=== PATIENT | female | born 1995 | race Caucasian/White ===

== ENCOUNTER → 2017-08-14 13:36 | Outpatient (REF) | payer OTHER, SELFPAY | LOC: LAB 13:36 ==

== ENCOUNTER → 2017-08-15 16:35 | Outpatient (REF) | payer OTHER, SELFPAY | LOC: LAB 16:35 ==

== ENCOUNTER 2017-08-24 16:28 | Emergency (ER) | payer OTHER, SELFPAY ==
[2017-08-24 17:16] VITALS: BP 142/86; PULSE 122; RESP 20; TEMP 36.8; O2SAT 99; BMI 28.3
[2017-08-24 17:53] LABS: UTC Influenza A Antigen Negative (Negative); UTC Influenza B Antigen Negative (Negative)
--- NOTE | 2017-08-24 18:24 | HMH.EDUTC ---
[facility] [place] Impression: Dehydration Diarrhea Qualifiers: Diarrhea type: presumed infectious Qualified Code(s): R19.7 - Diarrhea, unspecified Disposition: Still a Patient Condition on Discharge: Good Time of Disposition: 18:32 (Transfer to ER) Medical Decision Making Vital Signs: 08/24/17 17:16 Temperature 98.3 F Temperature Source Temporal Artery Scan Pulse Rate [Right Brachial] 122 H Respiratory Rate 20 Blood Pressure [Right Arm] 142/86 Blood Pressure Mean [Right Arm] 104 Blood Pressure Source [Right Arm] Automatic Cuff Blood Pressure Position [Right Arm] Sitting 02 Sat by Pulse Oximetry 99 Oxygen Delivery Method Room Air - Lab Data Lab results reviewed: Yes: I reviewed the patient's lab results. Lab Results 08/24/17 17:19: Influenza Type A Ag Negative, Influenza Type B Ag Negative - Anselmo Inquiry Pt receiving controlled substance: No - Reevaluation(s) Time: 18:31 Reevaluation #1: Discussed symptoms, possible differentials, [facility] guidelines, and necessary workup with patient. Agreeable to transfer to ER. Report called to AZUL Salgado in ER. Room 10 available. [facility] [place] - General Stated complaint: olivia,body pain Time Seen by Provider: 08/24/17 18:24 Mode of Arrival: Family Vehicle Source of Information: Patient Limitations: No Limitations Description of Symptoms (Recalled from Triage Doc. by RN): BODY ACHES, NAUSEA,SORE THROAT, DIZZINESS, DIARRHEA, FEVER, CHILLS, HEADACHE, WEAKNESS. HEENT Symptoms (Recalled from RN notes): Yes Resp Symptoms (Recalled from RN notes): No Skin Symptoms (Recalled from RN notes): No MS Symptoms (Recalled from RN notes): No Functional Status (Recalled from RN notes): NO - History of Present Illness Provider Complaint: c/o diarrhea starting Monday morning. now today significant headaches, dizziness, flushing, diaphoresis. No known sickc ontacts at home. 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 Reports at least 15 times already today and each time is a lot . Watery. Foul odor. No blood. Denies diarrhea. Immediate diarrhea after eating or drinking anything at all . Abdominal cramping before and after diarrhea. Initially lower but now upper abdomen. No known fever but feeling feverish now. Decreased urination today. Only twice. - Related Data Allergies Allergy/AdvReac Type Severity Reaction Status Date / Time No Known Allergies Allergy Unverified 07/25/17 14:58 - Worker's Comp Is this a Worker's Comp case?: No [facility] History I have reviewed the patient's past medical history: Yes (denies PMHx) Laterality Cases: Bilateral: Tonsillectomy - *Social History Smoking Status: Never smoker Alcohol Intake: never Substance Use Type: denies use - Psychiatric History Expresses thoughts of harming self/others: None Suicide Plan Description: No Plan *Family Hx:: Diabetes ROS Obtained: Yes Systems reviewed as appropriate & no additional complaints - Constitutional Constitutional: Reports as per HPI - ENT Ears, Nose, Mouth, and Throat: Denies nasal discharge, Denies nasal obstruction, Denies sore throat - Cardiovascular Cardiovascular: Denies chest pain, Reports irregular heart rhythm ( faster then normal today ), Denies leg edema - Respiratory Respiratory: No dyspnea, No dyspnea on exertion - Gastrointestinal Gastrointestingal: Reports: as per HPI - Genitourinary Female Genitourinary: Denies dysuria, Denies urinary urgency - Musculoskeletal Musculoskeletal: Denies back pain - Integumentary/Breasts Skin/Breast: Denies rash - Neurologic Neurologic: Reports headache(s) (worsening today), Denies tingling/numbness/burning sensations Physical Exam - General General appearance: alert, in no apparent distress - Eye Eye exam: Present: normal appearance - ENT ENT exam: Present: normal oropharynx, mucous membranes dry, TM's normal bilaterally - Neck Neck exam: Absent: lymphadenopathy - Chest Chest inspection: Present
--- NOTE | 2017-08-24 18:31 | ED_ITS ---
[facility] [place] Clinical Impression: Dehydration Diarrhea Qualifiers: Diarrhea type: presumed infectious Qualified Code(s): R19.7 - Diarrhea, unspecified Disposition: Still a Patient Condition on Discharge: Good Time of Disposition: 18:32 (Transfer to ER) Medical Decision Making Vital Signs: 08/24/17 17:16 Temperature 98.3 F Temperature Source Temporal Artery Scan Pulse Rate [Right Brachial] 122 H Respiratory Rate 20 Blood Pressure [Right Arm] 142/86 Blood Pressure Mean [Right Arm] 104 Blood Pressure Source [Right Arm] Automatic Cuff Blood Pressure Position [Right Arm] Sitting 02 Sat by Pulse Oximetry 99 Oxygen Delivery Method Room Air - Lab Data Lab results reviewed: Yes: I reviewed the patient's lab results. Lab Results 08/24/17 17:19: Influenza Type A Ag Negative, Influenza Type B Ag Negative - Anselmo Inquiry Pt receiving controlled substance: No - Reevaluation(s) Time: 18:31 Reevaluation #1: Discussed symptoms, possible differentials, [facility] guidelines, and necessary workup with patient. Agreeable to transfer to ER. Report called to AZUL Salgado in ER. Room 10 available. [facility] [place] HPI - General Stated complaint: olivia,body pain Time Seen by Provider: 08/24/17 18:24 Mode of Arrival: Family Vehicle Source of Information: Patient Limitations: No Limitations Description of Symptoms (Recalled from Triage Doc. by RN): BODY ACHES, NAUSEA, SORE THROAT, DIZZINESS, DIARRHEA, FEVER, CHILLS, HEADACHE, WEAKNESS. HEENT Symptoms (Recalled from RN notes): Yes Resp Symptoms (Recalled from RN notes): No Skin Symptoms (Recalled from RN notes): No MS Symptoms (Recalled from RN notes): No Functional Status (Recalled from RN notes): NO - History of Present Illness Provider Complaint: c/o diarrhea starting Monday morning. now today significant headaches, dizziness, flushing, diaphoresis. No known sickc ontacts at home. 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 Reports at least 15 times already today and each time is a lot . Watery. Foul odor. No blood. Denies diarrhea. Immediate diarrhea after eating or drinking anything at all . Abdominal cramping before and after diarrhea. Initially lower but now upper abdomen. No known fever but feeling feverish now. Decreased urination today. Only twice. - Related Data Allergies Allergy/AdvReac Type Severity Reaction Status Date / Time No Known Allergies Allergy Unverified 07/25/17 14:58 - Worker's Comp Is this a Worker's Comp case?: No [facility] History I have reviewed the patient's past medical history: Yes (denies PMHx) Laterality Cases: Bilateral: Tonsillectomy - *Social History Smoking Status: Never smoker Alcohol Intake: never Substance Use Type: denies use - Psychiatric History Expresses thoughts of harming self/others: None Suicide Plan Description: No Plan *Family Hx:: Diabetes ROS Obtained: Yes Systems reviewed as appropriate & no additional complaints - Constitutional Constitutional: Reports as per HPI - ENT Ears, Nose, Mouth, and Throat: Denies nasal discharge, Denies nasal obstruction , Denies sore throat - Cardiovascular Cardiovascular: Denies chest pain, Reports irregular heart rhythm ( faster then normal today ), Denies leg edema - Respiratory Respiratory: No dyspnea, No dyspnea on exertion - Gastrointestinal Gastrointestingal: Reports: as per HPI
[2017-08-24 18:49] VITALS: BP 132/83; PULSE 125; RESP 20; TEMP 37.3; O2SAT 98; BMI 28.3
[2017-08-24 19:13] LABS: Adenovirus F 40/41, stool Not Detected (NotDetected); Campylobacter Not Detected (NotDetected); Clostridium Difficile A/B, PCR Not Detected (NotDetected); Cryptosporidium Not Detected (NotDetected); Cyclospora Cayetanesis Not Detected (NotDetected); Entamoeba histolytica Not Detected (NotDetected); Enteroaggregative E coli Not Detected (NotDetected); Enteropathogenic E coli Not Detected (NotDetected); Enterotoxigenic E coli Not Detected (NotDetected); Giardia lamblia Not Detected (NotDetected); Norovirus Not Detected (NotDetected); Plesimonas Shigalloides, PCR Not Detected (NotDetected); Rotavirus A Not Detected (NotDetected); Salmonella, PCR Not Detected (NotDetected); Sapovirus Not Detected (NotDetected); Shiga-like toxin E coli Not Detected (NotDetected); Shigella Enterovasive E coli Not Detected (NotDetected); Vibrio Cholerae Not Detected (NotDetected); Vibrio, PCR Not Detected (NotDetected); Yersinia Entercolitica, PCR Not Detected (NotDetected)
[2017-08-24 19:15] LABS: Microscopic, Urine URINE MICROSCOPIC (MICROSCOPIC)
[2017-08-24 19:18] LABS: Basophils % 0.3 % (0.1-2.0); Eosinophils # 0.1 K/mm3 (0.0-0.4); Eosinophils % 0.4 % (0.1-12.0); Hematocrit 44.6 % (37.0-47.0); Hemoglobin 15.1 g/dL (12.2-16.2); Lymphocytes # 1.1 K/mm3 (0.7-4.5); Lymphocytes % 8.5 K/mm3 (10-50); Mean Corpuscular HGB Conc 33.8 g/dL (31.8-35.4); Mean Corpuscular Hemoglobin 29.9 pg (27.0-31.2); Mean Corpuscular Volume 88.3 fl (81-99); Mean Platelet Volume 6.6 fl (7.4-10.4); Monocytes # 0.9 K/mm3 (0.1-1.0); Monocytes % 6.7 % (1.7-9.3); Neutrophils # 10.6 K/mm3 (1.8-7.8); Neutrophils % 84.1 % (37.0-80.0); Platelet Count 400 K/mm3 (142-424); Red Blood Count 5.04 M/mm3 (4.20-5.40); Red Cell Distribution Width 12.2 % (11.5-17.5); White Blood Count 12.6 K/mm3 (4.8-10.8)
[2017-08-24 19:22] LABS: Appearance,Urine CLEAR (Clear); Bilirubin,Urine Negative (Negative); Blood, Urine TRACE-I (Negative); Color,Urine YELLOW (Yellow); Glucose,Urine (UA) Negative (Negative); Ketones,Urine 15 (Negative); Leukocyte Esterase,Urine TRACE (Negative); Nitrate,Urine Negative (Negative); Protein,Urine Negative (Negative); Specific Gravity, Urine 1.015 (1.005-1.030); Urobilinogen,Urine 0.2 EU/dl (0.2)
[2017-08-24 19:29] LABS: Alanine Aminotransferase 32 U/L (12-78); Albumin Level 4.7 gm/dL (3.4-5.0); Albumin/Globulin Ratio 1.2 (1.1-1.8); Alkaline Phosphatase 70 U/L (46-116); Amylase 27 U/L (25-125); Anion Gap 12.4 mEq/L (5-15); Aspartate Amino Transferase 27 U/L (15-37); Bilirubin,Total 0.4 mg/dL (0.2-1.0); Blood Urea Nitrogen 10 mg/dL (7-18); Calcium 9.2 mg/dL (8.5-10.1); Carbon Dioxide 27 mmol/L (21.0-32.0); Chloride 100 mmol/L (98-107); Creatinine Clearance Estimated 122 mL/min (0-300); Creatinine,Serum 0.81 mg/dL (0.55-1.02); Estimated Glomerular Filt Rate 89 ml/min (>60); GFR (African American) 108 ML/MIN (>60); Globulin 3.8 gm/dl (1.3-3.2); Glucose 93 mg/dL (74-106); Lipase 79 u/L (73-393); Potassium 3.4 mmoL/L (3.5-5.1); Sodium 136 mmol/L (136-145); Total Protein,Serum 8.5 gm/dL (6.4-8.2)
--- NOTE | 2017-08-24 19:59 | HMH.EDGENADL ---
ED Disposition Clinical Impression: Dehydration Diarrhea Qualifiers: Diarrhea type: presumed infectious Qualified Code(s): R19.7 - Diarrhea, unspecified Disposition: Home, Self-Care Condition on Discharge: Good Instructions: Diarrhea, DI for Nausea -- Adult, DI for Nausea -- Child Additional Instructions: Please take [id number] Imodium, per instructions. If not any better, please follow-up with PCP within 24 hours. Referrals: Deni Resendiz MD [Primary Care Provider] - Forms: Work/School Release Time of Disposition: 20:00 - Critical Care Critical Care Time: No Attestation: On 08/24/17, the high probability of a clinically significant, sudden or life threatening deterioration of the following system(s) required my full and direct attention, intervention and personal management. The time I documented below is in addition to time spent performing reported procedures but includes the following listed in this critical care notation. Medical Decision Making - Medical Records Medical records reviewed: Yes: I reviewed the patient's medical records. Vital Signs: 08/24/17 17:16 08/24/17 18:49 Temperature 98.3 F 99.1 F Temperature Source Temporal Artery Scan Oral Pulse Rate [Right Brachial] 122 H 125 H Respiratory Rate 20 20 Blood Pressure [Right Arm] 142/86 132/83 Blood Pressure Mean [Right Arm] 104 99 Blood Pressure Source [Right Arm] Automatic Cuff Automatic Cuff Blood Pressure Position [Right Arm] Sitting Sitting 02 Sat by Pulse Oximetry 99 98 Oxygen Delivery Method Room Air Room Air - Lab Data Lab results reviewed: Yes: I reviewed the patient's lab results. Lab Results 08/24/17 17:19: Influenza Type A Ag Negative, Influenza Type B Ag Negative 08/24/17 19:00: Urine Color Yellow, Urine Appearance Clear, Urine pH 6.0, Ur Specific Kincaid 1.015, Urine Protein Negative, Urine Glucose (UA) Negative, Urine Ketones 15, Urine Blood Trace-i, Urine Nitrate Negative, Urine Bilirubin Negative, Urine Urobilinogen 0.2, Ur Leukocyte Esterase Trace, Urine RBC None, Urine WBC 5-10, Ur Squamous Epith Cells 3-5, Ur Transition Epith Cell 10-20, Urine Bacteria 1+, Urine Mucus 2+ 08/24/17 19:00: Stl Aeromonas (PCR) Not detected, Stl C. cayetanensis PCR Not detected, Stool Rotavirus (PCR) Not detected, Stl Adenov F 40/41 PCR Not detected, Stool Astrovirus (PCR) Detected A, Stool Cryptosporidium PCR Not detected, Stl E.coli Shiga Tox PCR Not detected, Stool E coli O157 PCR Not detected, Stl Enterotoxigenic E PCR Not detected, Stool EPEC (PCR) Not detected, Stool EAEC (PCR) Not detected, Stl E. histolytica PCR Not detected, Stool Giardia Lamblia PCR Not detected, Stool Sapovirus (PCR) Not detected, Stl P. shigelloides PCR Not detected, Stl Shigella/EIEC PCR Not detected, St Y.enterocolitica PCR Not detected, Stool Vibrio (PCR) Not detected, Stl Vibrio cholerae PCR Not detected, Stl Norovirus GI/GII PCR Not detected, Campylobacter (PCR) Not detected, C. difficile (PCR) Not detected, Salmonella (PCR) Not detected 08/24/17 19:00: WBC 12.6 H, RBC 5.04, Hgb 15.1, Hct 44.6, MCV 88.3, MCH 29.9, MCHC 33.8, RDW 12.2, Plt Count 400, MPV 6.6 L, Neut % (Auto) 84.1 H, Lymph % (Auto) 8.5 L, [place] % (Auto) 6.7, Eos % (Auto) 0.4, Baso % (Auto) 0.3, Neut # (Auto) 10.6 H, Lymph # (Auto) 1.1, [place] # (Auto) 0.9, Eos # (Auto) 0.1, Baso # (Auto) 0.0 08/24/17 19:00: Sodium 136, Potassium 3.4 L, Chloride 100, Carbon Dioxide 27, Anion Gap 12.4, BUN 10, Creatinine 0.81, Estimated Creat Clear 122, Estimated GFR 89, Est GFR ( Amer) 108, Glucose 93, Calcium 9.2, Total Bilirubin 0.4, AST 27, ALT 32, Alkaline Phosphatase 70, Total Protein 8.5 H, Albumin 4.7, Globulin 3.8 H, Albumin/Globulin Ratio 1.2, Amylase 27, Lipase 79 Result diagrams: 08/24/17 19:00 08/24/17 19:00 Orders (Tests/Meds): ED MEDICATIONS Discontinued Medications Generic Name Dose Route Start Last Admin Trade Name Freq PRN Reason Stop Dose Admin Diphenoxylate HCl/Atropine 5 m
[2017-08-24 20:18] LABS: Bacteria,Urine 1+ /lpf; Mucus,Urine 2+ /lpf
[2017-08-24 21:45] LABS: Astrovirus Detected (NotDetected)
== END 2017-08-24 20:20 | disposition home or self-care (01) ==
LOC: UTC 18:33 → ER 18:42
PROVIDERS: Nurse Practitioner Family; Emergency Provider Emergency Medicine; Family Provider Emergency Medicine; PCP Emergency Medicine
DX: E86.0 Dehydration (principal); A09 Infectious gastroenteritis and colitis, unspecified
CPT/HCPCS: 80053; 81001; 82150; 83690; 85025; 87507; 87804; 96365; 96366; 99282; 99284

== ENCOUNTER → 2017-09-06 11:49 | Outpatient (CLI) | payer OTHER, SELFPAY ==
[2017-09-18 08:54] LABS: H. pylori Breath Test NEGATIVE
== END ==
PROVIDERS: PCP Emergency Medicine; Visit Provider Nurse Practitioner Family
DX: R11.2 Nausea with vomiting, unspecified (principal)
CPT/HCPCS: 83013

== ENCOUNTER → 2017-09-15 14:37 | Outpatient (REF) | payer OTHER, SELFPAY | LOC: LAB 14:37 | PROVIDERS: Visit Provider Nurse Practitioner Family | DX: R10.9 Unspecified abdominal pain (principal); R53.83 Other fatigue | CPT/HCPCS: 87086 ==

== ENCOUNTER 2017-09-15 15:24 | Emergency (ER) | payer OTHER, SELFPAY ==
[2017-09-15 15:25] VITALS: BP 145/92; PULSE 104; RESP 20; TEMP 37.2; O2SAT 99; BMI 29.0
--- NOTE | 2017-09-15 15:52 | HMH.EDGENADL ---
ED Disposition Clinical Impression: Abdominal pain Qualifiers: Abdominal location: unspecified location Qualified Code(s): R10.9 - Unspecified abdominal pain Disposition: Home, Self-Care Condition on Discharge: Good Instructions: DI for Abdominal Pain-Adult Additional Instructions: Call your primary care provider on Monday for further instructions, gastroenterology referral. Additional instructions for ABDOMINAL PAIN: See your physician as soon as possible for further evaluation. Return immediately if worsening abdominal pain, vomiting, shortness of breath, fever, vomiting of blood or abdominal distention. Prescriptions: Ondansetron [Zofran 4mg ODT] 4 mg PO TIDP PRN #[id number] tab.rapdis PRN Reason: Nausea And Vomiting Referrals: Deni Resendiz MD [Primary Care Provider] - - Critical Care Critical Care Time: No Attestation: On 09/15/17, the high probability of a clinically significant, sudden or life threatening deterioration of the following system(s) required my full and direct attention, intervention and personal management. The time I documented below is in addition to time spent performing reported procedures but includes the following listed in this critical care notation. Medical Decision Making Vital Signs: 09/15/17 15:25 Temperature 98.9 F Temperature Source Oral Pulse Rate [Right Radial] 104 H Respiratory Rate 20 Blood Pressure [Right Arm] 145/92 Blood Pressure Mean [Right Arm] 109 Blood Pressure Source [Right Arm] Automatic Cuff Blood Pressure Position [Right Arm] Sitting 02 Sat by Pulse Oximetry 99 Oxygen Delivery Method Room Air - Lab Data Lab Results 09/15/17 16:00: WBC 12.2 H, RBC 5.07, Hgb 15.1, Hct 44.8, MCV 88.3, MCH 29.8, MCHC 33.7, RDW 12.4, Plt Count 433 H, MPV 6.8 L, Neut % (Auto) 74.6, Lymph % (Auto) 20.8, [place] % (Auto) 3.7, Eos % (Auto) 0.4, Baso % (Auto) 0.5, Neut # (Auto) 9.1 H, Lymph # (Auto) 2.5, [place] # (Auto) 0.5, Eos # (Auto) 0.1, Baso # (Auto) 0.1 09/15/17 16:00: Sodium 143, Potassium 3.8, Chloride 105, Carbon Dioxide 28, Anion Gap 13.8, BUN 11, Creatinine 0.79, Estimated Creat Clear 128, Estimated GFR 92, Est GFR ( Amer) 111, Glucose 92, Calcium 9.4, Total Bilirubin 0.3, AST 30, ALT 53, Alkaline Phosphatase 76, Total Protein 8.5 H, Albumin 4.6, Globulin 3.9 H, Albumin/Globulin Ratio 1.2, Lipase 106 09/15/17 16:00: Serum HCG, Qual Negative Result diagrams: 09/15/17 16:00 09/15/17 16:00 Orders (Tests/Meds): ED MEDICATIONS Discontinued Medications Generic Name Dose Route Start Last Admin Trade Name Lang PRN Reason Stop Dose Admin Iopamidol 75 ml 09/15/17 17:09 09/15/17 17:10 [id number]; 75ml Vial IV 09/15/17 17:10 75 ml ONCE ONE Administration Sodium Chloride 10 ml 09/15/17 17:09 09/15/17 17:10 Rad-Saline Flush 10ml Syringe IV 09/15/17 17:10 10 ml ONCE ONE Administration ORDERS Category Date Time Status US gallbladder Stat Exams 09/15/17 16:10 Taken - CT Data CT Scan: Abdomen, Pelvis Time Received: 17:[address] Reviewed: Yes: I have viewed the radiologist's interpretation Findings Narrative: CT scan interpreted by radiologist: Polycystic appearance of ovaries. No acute process. - Anselmo Inquiry Pt receiving controlled substance: No General Adult HPI - General Chief complaint: Abdominal Pain Stated complaint: pain in right side, nausea, hot flashes,vomiting Mode of Arrival: Ambulatory Limitations: No Limitations Description of Symptoms (Recalled from ER Triage Doc. by RN): DIARRHEA FOR A WEEK THEN CONSTIPATION FOR A WEEK , WENT TO DR LEIGH THEY SENT HER UP HERE THEY SAID HER GALLBLADDER FELT HARD AND WANTED HER APPENDIX CHECKED . URINE PREG WAS NEG AND U/A WAS NORMAL AT OFFICE - History of Present Illness HPI narrative: Patient complains of right sided abdominal pain for about 3-1/2 weeks. She says it began after she was seen in the emergency room for diarrhea. She had some persi
--- NOTE | 2017-09-15 16:03 | CT_ITS ---
CT abdomen pelvis w con CLINICAL INDICATION: Right upper quadrant pain, right lower quadrant pain ITS.REASON: RUQ and RLQ pain ORDERING PHYSICIAN: Venkat Ugalde MD PATIENT AGE: 21 years COMPARISON: None TECHNIQUE: Axial images obtained with sagittal and coronal reformats. PROCEDURE: Oral Contrast: None IV Contrast: 75 mL's of [id number]-370. FINDINGS: Lung bases are clear. Small amount of gas in the distal esophagus which may be seen with reflux. The liver, spleen, adrenal glands, pancreas, gallbladder, kidneys, ureters, and urinary bladder have an unremarkable appearance. No evidence of appendicitis. No intestinal obstruction or free air. Nondistended fluid-filled loops of small bowel are present in the pelvis are nonspecific.. The ovaries have a polycystic appearance with cyst on the left measuring up to 1.7 cm in on the right measuring up to 2 x 1 cm. No focal inflammatory change evident within the pelvis. No acute bony anomalies. There is mild lumbar scoliosis convex left. IMPRESSION: 1. No acute abdominal pelvic findings. 2. Polycystic appearance of the ovaries which may be better evaluated with ultrasound if clinically warranted 3. No evidence of appendicitis or obstructing ureteral calculus
--- NOTE | 2017-09-15 16:10 | US_ITS ---
US gallbladder HISTORY: ITS.REASON: RUQ pain ORDERING PHYSICIAN: Venkat Ugalde MD PATIENT AGE: 21 years COMPARISON: None FINDINGS: PANCREAS: Unremarkable. No obvious mass or abnormal fluid collection. No ductal dilatation LIVER: No focal liver lesions demonstrated. Homogeneous echogenicity. No intrahepatic biliary ductal dilatation evident RIGHT KIDNEY: Unremarkable. Normal size and echogenicity. No hydronephrosis GALLBLADDER: No gallstones, gallbladder wall thickening, pericholecystic fluid, or biliary dilatation. IMPRESSION: Negative gallbladder/right upper quadrant ultrasound
[2017-09-15 16:29] LABS: Basophils # 0.1 K/mm3 (0-0.2); Basophils % 0.5 % (0.1-2.0); Eosinophils # 0.1 K/mm3 (0.0-0.4); Eosinophils % 0.4 % (0.1-12.0); Hematocrit 44.8 % (37.0-47.0); Hemoglobin 15.1 g/dL (12.2-16.2); Lymphocytes # 2.5 K/mm3 (0.7-4.5); Lymphocytes % 20.8 K/mm3 (10-50); Mean Corpuscular HGB Conc 33.7 g/dL (31.8-35.4); Mean Corpuscular Hemoglobin 29.8 pg (27.0-31.2); Mean Corpuscular Volume 88.3 fl (81-99); Mean Platelet Volume 6.8 fl (7.4-10.4); Monocytes # 0.5 K/mm3 (0.1-1.0); Monocytes % 3.7 % (1.7-9.3); Neutrophils # 9.1 K/mm3 (1.8-7.8); Neutrophils % 74.6 % (37.0-80.0); Platelet Count 433 K/mm3 (142-424); Red Blood Count 5.07 M/mm3 (4.20-5.40); Red Cell Distribution Width 12.4 % (11.5-17.5); White Blood Count 12.2 K/mm3 (4.8-10.8)
[2017-09-15 16:43] LABS: HCG Qualitative, Serum Negative (Negative)
[2017-09-15 16:46] LABS: Alanine Aminotransferase 53 U/L (12-78); Albumin Level 4.6 gm/dL (3.4-5.0); Albumin/Globulin Ratio 1.2 (1.1-1.8); Alkaline Phosphatase 76 U/L (46-116); Anion Gap 13.8 mEq/L (5-15); Aspartate Amino Transferase 30 U/L (15-37); Bilirubin,Total 0.3 mg/dL (0.2-1.0); Blood Urea Nitrogen 11 mg/dL (7-18); Calcium 9.4 mg/dL (8.5-10.1); Carbon Dioxide 28 mmol/L (21.0-32.0); Chloride 105 mmol/L (98-107); Creatinine Clearance Estimated 128 mL/min (0-300); Creatinine,Serum 0.79 mg/dL (0.55-1.02); Estimated Glomerular Filt Rate 92 ml/min (>60); GFR (African American) 111 ML/MIN (>60); Globulin 3.9 gm/dl (1.3-3.2); Glucose 92 mg/dL (74-106); Lipase 106 u/L (73-393); Potassium 3.8 mmoL/L (3.5-5.1); Sodium 143 mmol/L (136-145); Total Protein,Serum 8.5 gm/dL (6.4-8.2)
[2017-09-15 18:18] VITALS: BP 131/85; PULSE 87; RESP 16; TEMP 37.4; O2SAT 98
== END 2017-09-15 18:18 | disposition home or self-care (01) ==
PROVIDERS: Emergency Provider Emergency Medicine; Family Provider Emergency Medicine; PCP Emergency Medicine
DX: R19.7 Diarrhea, unspecified (principal); E86.0 Dehydration; R10.9 Unspecified abdominal pain
CPT/HCPCS: 74177; 76705; 80053; 83690; 84703; 85025; 99283; Q9967

== ENCOUNTER 2017-09-19 19:16 | Emergency (ER) | payer OTHER, SELFPAY ==
[2017-09-19 19:27] VITALS: BP 0/0; PULSE 0; RESP 0; TEMP -17.7; TEMP 0; O2SAT 0
== END 2017-09-19 19:28 | disposition left against medical advice (07) ==
LOC: UTC 09-17 14:19
PROVIDERS: Emergency Provider Nurse Practitioner Family; PCP Emergency Medicine
DX: Z53.29 Procedure and treatment not carried out because of patient's decision for other reasons (principal)
CPT/HCPCS: 99201; 99211

== ENCOUNTER → 2017-09-21 16:26 | Outpatient (REF) | payer OTHER, SELFPAY ==
[2017-09-21 18:56] LABS: Monoscreen (Rapid) Negative (Negative)
[2017-09-21 20:23] LABS: Erythrocyte Sedimentation Rate 12 mm/hr (0-20)
[2017-09-23 19:06] LABS: Epstein-Barr Virus Early Ag Ab <9.0 U/mL (0.0-8.9)
[2017-09-23 19:06] LABS: Vitamin D 25 Hydroxy 14.5 ng/mL (30.0-100.0)
== END ==
LOC: LAB 16:26
PROVIDERS: Visit Provider Nurse Practitioner Family
DX: R53.83 Other fatigue (principal); E55.9 Vitamin D deficiency, unspecified
CPT/HCPCS: 82652; 85651; 86318; 86663

== ENCOUNTER → 2017-09-22 08:56 | Outpatient (CLI) | payer OTHER, SELFPAY ==
--- NOTE | 2017-09-22 08:58 | US_ITS ---
US abdomen limited: HISTORY: ITS.REASON: enlarged spleen ORDERING PHYSICIAN: Anel Lewis PATIENT AGE: 21 years COMPARISON: None FINDINGS: Spleen size is normal at 10 cm. No perisplenic fluid collection or splenic mass apparent. Left kidney has an unremarkable appearance at 9 x 4 cm. No hydronephrosis. IMPRESSION: Unremarkable appearing spleen and left kidney
== END ==
PROVIDERS: PCP Emergency Medicine; Visit Provider Nurse Practitioner Family
DX: R10.9 Unspecified abdominal pain (principal)
CPT/HCPCS: 76705

== ENCOUNTER 2017-10-17 09:45 | Outpatient (RCR) | payer OTHER, SELFPAY ==
--- NOTE | 2017-10-17 10:28 | HMH.PTOPEV ---
Rehab Outpatient Evaluation Rehab OP Evaluation Start: 10/17/17 10:15 Freq: Status: Active Protocol: Document 10/17/17 10:15 TFRY (Rec: 10/17/17 10:28 TFRY [id number]) Electronically Signed By Marissa Merida OT 10/17/17 10:15 Outpatient Therapy Subjective History Subjective History THIS IS A 21 YEAR OLD RIGHT HANDED FEMALE REFERRED TO OCCUPATIONAL THERAPY FOR RIGHT WRIST PAIN; RIGHT ARM PAIN AND CARPAL TUNNEL SYNDROME. PATIENT STATES THAT SHE HAS CARPAL TUNNEL SYNDROME IN BOTH WRISTS. STATES THAT ON SHE HAD BLOOD DRAWN AND THINKS THEY MIGHT HAVE HIT THE NERVE AT THAT TIME. Chief Complaint Pain Symptom Type Ache Symptoms Relieved By Rest/Positioning Symptoms Aggravated By Physical Activity Prior Functional Limitations None Current Functional Limitations Lifting Symptom Description Activity Dependent Level of pain today (0-10) 1 Pain scale - at its best (0-10) 0 Pain scale - at its worst (0-10) 3 Wrist/Hand Eval Palpation Tenderness/Visual Exam Wrist/Hand Palpation Findings None/Normal Flexibility Deficits Wrist Extensors Muscle Length (R) WFL (L) WFL Wrist Flexors Muscle Length (R) WFL (L) WFL Supinator Muscle Length (R) WFL (L) WFL Pronator Muscle Length (R) WFL (L) WFL Hand Intrinsics Muscle Length (R) WFL (L) WFL Thumb Extensors Muscle Length (R) WFL (L) WFL Thumb Abductors Muscle Length (R) WFL (L) WFL Wrist Range of Motion Wrist ROM Reason Not Measured Within Functional Limits Wrist Manual Muscle Testing Right Wrist Strength Reason Not Measured WFL Conductor Pullman/Pinch Strength Conductor Pullman Strength Measurement (lbs) 52 Palmar Pinch (3-point) Ability Normal Performance Palmar Pinch (3-point) Strength 7 Measurement (lbs) Tip Pinch (2-point) Ability Normal Performance Tip Pinch (2-point) Strength Measurement 6 (lbs) Lateral Pinch Ability Normal Performance Special Tests Wrist Phalen Test Positive Left Positive Right Outpatient Therapy Assessment Prognosis Rehab Potential Innapropriate for Skilled Therapy Comment REVIEW NERVE GLIDING EXERCISES
== END 2017-10-17 09:46 | disposition home or self-care (01) ==
LOC: OT 09:45
PROVIDERS: Family Provider Emergency Medicine; PCP Emergency Medicine; Visit Provider Nurse Practitioner Family
DX: M25.531 Pain in right wrist (principal); M79.601 Pain in right arm; G56.01 Carpal tunnel syndrome, right upper limb
CPT/HCPCS: 97163; 97165

== ENCOUNTER → 2019-01-10 13:59 | Outpatient (CLI) | payer OTHER, SELFPAY ==
[2019-01-10 15:44] LABS: HCG Qualitative, Serum Negative (Negative)
== END ==
PROVIDERS: Visit Provider Nurse Practitioner Family
DX: N92.6 Irregular menstruation, unspecified (principal)
CPT/HCPCS: 84703

== ENCOUNTER → 2019-03-07 14:19 | Outpatient (CLI) | payer OTHER, SELFPAY ==
[2019-03-07 14:35] LABS: Basophils % 0.4 % (0.1-2.0); Eosinophils % 0.6 % (0.1-12.0); Hematocrit 43.7 % (37.0-47.0); Hemoglobin 13.5 g/dL (12.2-16.2); Lymphocytes % 29.1 % (10-50); Mean Corpuscular HGB Conc 30.9 g/dL (31.8-35.4); Mean Corpuscular Hemoglobin 28.6 pg (27.0-31.2); Mean Corpuscular Volume 92.4 fl (81-99); Mean Platelet Volume 7.8 fl (7.4-10.4); Monocytes # 0.3 K/mm3 (0.1-1.0); Monocytes % 4.7 % (1.7-9.3); Neutrophils # 4.5 K/mm3 (1.8-7.8); Neutrophils % 65.3 % (37.0-80.0); Platelet Count 488 K/mm3 (142-424); Red Blood Count 4.73 M/mm3 (4.20-5.40)
[2019-03-07 14:36] LABS: HCG Qualitative, Serum Positive (Negative)
[2019-03-07 14:56] LABS: Alanine Aminotransferase 18 U/L (12-78); Albumin/Globulin Ratio 1.3 (1.1-1.8); Alkaline Phosphatase 54 U/L (46-116); Anion Gap 13.7 mEq/L (5-15); Aspartate Amino Transferase 10 U/L (15-37); Bilirubin,Total 0.4 mg/dL (0.2-1.0); Blood Urea Nitrogen 11 mg/dL (7-18); Calcium 9.1 mg/dL (8.5-10.1); Carbon Dioxide 28 mmol/L (21.0-32.0); Chloride 103 mmol/L (98-107); Chol/HDL Ratio 3.4 (1-3.5); Cholesterol 140 mg/dL (140-200); Creatinine,Serum 0.79 mg/dL (0.55-1.02); Estimated Glomerular Filt Rate 90 ml/min (>60); GFR (African American) 109 ML/MIN (>60); Globulin 3.2 gm/dl (1.3-3.2); Glucose 99 mg/dL (74-106); HDL Cholesterol 41 mg/dL (29-89); LDL Cholesterol 84 mg/dL (0-130); Potassium 3.7 mmoL/L (3.5-5.1); Sodium 141 mmol/L (136-145); Thyroid Stimulating Hormone 1.45 uIU/ml (0.358-3.740); Total Protein,Serum 7.2 gm/dL (6.4-8.2); Triglycerides 74 mg/dL (30-200); VLDL Cholesterol 15 mg/dL (0-40)
[2019-03-09 18:45] LABS: Folate >20.0 ng/mL (>3.0); Vitamin B12 339 pg/mL (232-1245); Vitamin D 25 Hydroxy 9.9 ng/mL (30.0-100.0)
== END ==
PROVIDERS: Visit Provider Nurse Practitioner Family
DX: N92.6 Irregular menstruation, unspecified (principal); R53.83 Other fatigue
CPT/HCPCS: 80053; 80061; 82607; 82652; 82746; 84436; 84443; 84703; 85025

== ENCOUNTER → 2019-03-26 09:59 | Outpatient (CLI) | payer OTHER, SELFPAY ==
--- NOTE | 2019-03-26 10:05 | US_ITS ---
PROCEDURE: US OB TRANSVAGINAL CLINICAL INDICATION: US OB Dates Early OB evaluation COMPARISON: No exams were available for comparison TECHNIQUE: Endovaginal exam FINDINGS: An intrauterine gestational sac is present with a pole with a crown-rump length of 0.67 cm correlating to gestational age of 6.57 week. heart tones are present with an FHR of 132 bpm. Yolk sac is noted. Adnexa: 13 mm right corpus luteum cyst. IMPRESSION: Live intrauterine gestation at 6 weeks 4 days Estimated due date by Ultrasound is 11/15/2019 Dictated by: Bradley Mascorro MD 03/27/2019 05:07 Signed by: <Electronically signed by Bradley Mascorro MD in [place]> 03/27/2019 05:07
[2019-03-26 11:10] LABS: Basophils % 0.4 % (0.1-2.0); Eosinophils % 0.2 % (0.1-12.0); Hematocrit 37.3 % (37.0-47.0); Hemoglobin 12.3 g/dL (12.2-16.2); Lymphocytes # 1.8 K/mm3 (0.7-4.5); Lymphocytes % 17.6 % (10-50); Mean Corpuscular HGB Conc 32.9 g/dL (31.8-35.4); Mean Corpuscular Hemoglobin 29.1 pg (27.0-31.2); Mean Corpuscular Volume 88.3 fl (81-99); Mean Platelet Volume 6.3 fl (7.4-10.4); Monocytes # 0.4 K/mm3 (0.1-1.0); Monocytes % 4.3 % (1.7-9.3); Neutrophils # 7.7 K/mm3 (1.8-7.8); Neutrophils % 77.5 % (37.0-80.0); Platelet Count 418 K/mm3 (142-424); Red Blood Count 4.22 M/mm3 (4.20-5.40)
[2019-03-27 08:18] LABS: HIV Screen 4th Generation wRfx Non Reactive (Non Reactive)
[2019-03-28 06:06] LABS: Hepatitis B Surface Antigen Negative (Negative); Hepatitis C Antibody <0.1 s/co ratio (0.0-0.9)
[2019-03-28 06:07] LABS: Rapid Plasma Reagin Ab Titer Non Reactive (NonRea<1:1)
== END ==
PROVIDERS: PCP Emergency Medicine; Visit Provider Nurse Practitioner Obstetrics & Gynecology
DX: O26.841 Uterine size-date discrepancy, first trimester (principal); Z34.90 Encounter for supervision of normal pregnancy, unspecified, unspecified trimester
CPT/HCPCS: 36415; 76817; 85025; 86592; 86703; 86762; 86850; 87340; 87380; G0432

== ENCOUNTER 2019-04-09 18:03 | Observation (INO) ==
[2019-04-09 20:09] LABS: Microscopic, Urine URINE MICROSCOPIC (MICROSCOPIC)
[2019-04-09 20:13] LABS: Appearance,Urine CLEAR (Clear); Bilirubin,Urine Negative (Negative); Blood, Urine Negative (Negative); Color,Urine YELLOW (Yellow); Glucose,Urine (UA) Negative (Negative); Ketones,Urine 2+ (Negative); Leukocyte Esterase,Urine 1+ (Negative); Protein,Urine Negative (Negative); Urobilinogen,Urine 0.2 EU/dl (0.2)
[2019-04-09 20:22] LABS: Bacteria,Urine Trace /lpf
--- NOTE | 2019-04-09 20:32 | Emergency Department Note ---
ED Disposition Clinical Impression: Hyperemesis gravidarum Qualifiers: Weeks of gestation: 9 weeks Qualified Code(s): Z3A.09 - 9 weeks gestation of Disposition: Admitted as Observation Condition on Discharge: Good Instructions: DI for Diarrhea and Traveler's Diarrhea -- Adult, DI for Diarrhea and Traveler's Diarrhea -- Child, DI for Nausea -- Adult, DI for Nausea -- Child Referrals: Deni Resendiz MD [Primary Care Provider] - - Critical Care Critical Care Time: No Attestation: On 04/09/19, the high probability of a clinically significant, sudden or life threatening deterioration of the following system(s) required my full and direct attention, intervention and personal management. The time I documented below is in addition to time spent performing reported procedures but includes the following listed in this critical care notation. Medical Decision Making - Medical Records Medical records reviewed: Yes: I reviewed the patient's medical records. - Anselmo Inquiry Pt receiving controlled substance: No Vital Signs: 04/09/19 19:10 Temperature 99.0 F Temperature Source Oral Pulse Rate [Left Radial] 85 Respiratory Rate 16 Blood Pressure [Left Arm] 116/77 Blood Pressure Mean [Left Arm] 90 Blood Pressure Source [Left Arm] Automatic Cuff Blood Pressure Position [Left Arm] Sitting 02 Sat by Pulse Oximetry 100 Oxygen Delivery Method Room Air - Lab Data Lab results reviewed: Yes: I reviewed the patient's lab results. Lab Results 04/09/19 20:00: Urine Color Yellow, Urine Appearance Clear, Urine pH 6.0, Ur Specific [place] 1.010, Urine Protein Negative, Urine Glucose (UA) Negative, Urine Ketones 2+, Urine Blood Negative, Urine Nitrate Negative, Urine Bilirubin Negative, Urine Urobilinogen 0.2, Ur Leukocyte Esterase 1+ A, Urine WBC 3-5, Ur Squamous Epith Cells 10-20, Urine Bacteria Trace 04/09/19 20:00: Urine HCG, Qual Positive 04/09/19 20:25: WBC 11.7 H, RBC 4.54, Hgb 13.6, Hct 40.2, MCV 88.5, MCH 30.0, MCHC 33.9, RDW 13.0, Plt Count 401, MPV 6.4 L, Neut % (Auto) 73.9, Lymph % (Auto) 21.5, Pratt % (Auto) 4.3, Eos % (Auto) 0.2, Baso % (Auto) 0.2, Neut # (Auto) 8.6 H, Lymph # (Auto) 2.5, Pratt # (Auto) 0.5, Eos # (Auto) 0.0, Baso # (Auto) 0.0 04/09/19 20:25: Sodium 139, Potassium 3.3 L, Chloride 101, Carbon Dioxide 26, Anion Gap 15.3 H, BUN 5 L, Creatinine 0.54 L, Estimated Creat Clear 153, Estimated GFR 140, Est GFR ( Amer) 169, Glucose 73 L, Calcium 9.2, Total Bilirubin 0.4, AST 12 L, ALT 16, Alkaline Phosphatase 46, Total Protein 7.8, Albumin 4.1, Globulin 3.7 H, Albumin/Globulin Ratio 1.1 Result diagrams: 04/09/19 20:25 04/09/19 20:25 Orders (Tests/Meds): ED MEDICATIONS Generic Name Dose Route Start Last Admin Trade Name Freq PRN Reason Stop Dose Admin Sodium Chloride 1,000 mls @ 999 mls/hr 04/09/19 19:30 04/09/19 20:04 Sod Chlor 0.9% 1000ml Bag IV 04/09/19 20:30 999 mls/hr .Q1H1M LALY Administration ORDERS Category Date Time Status Urine Culture Stat Micro 04/09/19 20:00 Received - Physician Consults Physician Consulted: mic Reason -: Admission HPI - General Chief complaint: Nausea/Vomiting/Diarrhea Stated complaint: 8 wk preg vomiting,dizzy Time Seen by Provider: 04/09/19 20:32 Mode of Arrival: Ambulatory Source of Information: Patient, Spouse, Parent(s), Medical Record Limitations: No Limitations Description of Symptoms (Recalled from ER Triage Doc. by RN): Pt reports vomitting for 3-4 days, unable to keep any PO intake down. Pt also reports "stretching" type pain in R lower abd for 2-3 days. Pt reports she is approx 8 weeks . - History of Present Illness HPI Narrative: pt with 2-3 day hx of vomiting and is 9 weeks preg and has dec po intake - no vaginal bleeding MD Complaint: other (vomiting) Onset (ago): day(s) Consistency: constant Severity: moderate Associated symptoms: denies other symptoms : yes Date of Last Menstrual Period: 02/08/19 - Related Data Home Medications Medication Instructions Recorded Confirmed cholecalciferol (vitamin D3) 50,000 unit PO QWEEK 03/26/19 03/26/19 50,000 unit capsule Previous Rx's Medication Instructions Recorded Albuterol Sulfate [Albuterol HFA 1 - 2 puffs IH Q4-6H PRN #1 inh 12/21/17 Inhaler] ergocalciferol (vitamin D2) 50,000 50,000 unit PO QWEEK #4 cap 03/19/19 unit capsule Allergies Allergy/AdvReac Type Severity Reaction Status Date / Time No Known Allergies Allergy Verified 03/26/19 08:44 [facility] History - Hepatitis A Screen Drug use history?: No High risk sexual behaviors?: No History of sexually transmitted infection?: No Currently employed?: No Childcare worker?: No Do you have indoor plumbing?: Yes Do you have electricity?: Yes Attestation statement:: This patient has been screened for Hepatitis A risk factors. I have reviewed the patient's past medical history: Yes Medical History: Denies:: Cancer, Diabetes Mellitus Type 1, Diabetes Mellitus Type 2, Hypertension, MRSA Comment: STAPH INFECTION, ceialc disease Laterality Cases: Bilateral: Tonsillectomy Other Surgeries: Yes: Colonoscopy Amputation: No Fractures: No - Social History Smoking Status: Never smoker Alcohol Intake: never Substance Use Type: denies use Occupational Status: employed Household Members: family Family Hx:: Diabetes ROS Obtained: Yes All systems reviewed & no additional complaints - Constitutional Constitutional: Denies fever(s) - Eyes Eyes: Denies change in vision - ENT Ears, Nose, Mouth, and Throat: Denies sore throat - Cardiovascular Cardiovascular: Denies chest pain - Respiratory Respiratory: No cough - Gastrointestinal Gastrointestingal: Reports: as per HPI, nausea, vomiting. Denies: abdominal pain - Genitourinary Female Genitourinary: Denies abnormal vaginal bleeding - Musculoskeletal Musculoskeletal: Denies joint swelling - Integumentary/Breasts Skin/Breast: Denies rash - Neurologic Neurologic: Denies seizure-like activity Physical Exam - General General appearance: alert - Head Head exam: normocephalic - Eye Eye exam: Present: PERRL, EOMI - ENT ENT exam: Present: mucous membranes dry - Neck Neck exam: Present: trachea midline - Respiratory Respiratory exam: Absent: respiratory distress - Cardiovascular Cardiovascular exam: Present: regular rate - Abdominal Exam Abdominal exam: Present: soft - Neurological Exam Neurological exam: Present: alert, oriented X3, CN II-XII intact - Psychiatric Psychiatric exam: Present: normal affect - Skin Skin exam: Absent: rash
[2019-04-09 20:42] LABS: Basophils % 0.2 % (0.1-2.0); Eosinophils % 0.2 % (0.1-12.0); Hematocrit 40.2 % (37.0-47.0); Hemoglobin 13.6 g/dL (12.2-16.2); Lymphocytes # 2.5 K/mm3 (0.7-4.5); Lymphocytes % 21.5 % (10-50); Mean Corpuscular HGB Conc 33.9 g/dL (31.8-35.4); Mean Corpuscular Volume 88.5 fl (81-99); Mean Platelet Volume 6.4 fl (7.4-10.4); Monocytes # 0.5 K/mm3 (0.1-1.0); Monocytes % 4.3 % (1.7-9.3); Neutrophils # 8.6 K/mm3 (1.8-7.8); Neutrophils % 73.9 % (37.0-80.0); Platelet Count 401 K/mm3 (142-424); Red Blood Count 4.54 M/mm3 (4.20-5.40); White Blood Count 11.7 K/mm3 (4.8-10.8)
[2019-04-09 21:03] LABS: Albumin Level 4.1 gm/dL (3.4-5.0); Albumin/Globulin Ratio 1.1 (1.1-1.8); Anion Gap 15.3 mEq/L (5-15); Bilirubin,Total 0.4 mg/dL (0.2-1.0); Calcium 9.2 mg/dL (8.5-10.1); Globulin 3.7 gm/dl (1.3-3.2); Total Protein,Serum 7.8 gm/dL (6.4-8.2)
[2019-04-10 06:22] LABS: Basophils % 0.3 % (0.1-2.0); Eosinophils % 0.3 % (0.1-12.0); Hematocrit 38.7 % (37.0-47.0); Hemoglobin 12.9 g/dL (12.2-16.2); Lymphocytes # 3.3 K/mm3 (0.7-4.5); Lymphocytes % 28.8 % (10-50); Mean Corpuscular HGB Conc 33.3 g/dL (31.8-35.4); Mean Corpuscular Volume 88.6 fl (81-99); Mean Platelet Volume 6.2 fl (7.4-10.4); Monocytes # 0.5 K/mm3 (0.1-1.0); Monocytes % 4.6 % (1.7-9.3); Neutrophils # 7.4 K/mm3 (1.8-7.8); Neutrophils % 65.9 % (37.0-80.0); Platelet Count 373 K/mm3 (142-424); Red Blood Count 4.37 M/mm3 (4.20-5.40); Red Cell Distribution Width 13.1 % (11.5-17.5); White Blood Count 11.3 K/mm3 (4.8-10.8)
[2019-04-10 06:26] LABS: Anion Gap 13.6 mEq/L (5-15); Calcium 8.6 mg/dL (8.5-10.1)
--- NOTE | 2019-04-10 07:39 | Pharmacy Consult Notes ---
[facility] Pharmacy VTE Monitoring - Patient Demographics Admission date: 04/09/19 Report Date: 04/10/19 Time: 07:39 Allergies/Adverse Reactions: Patient Allergies gluten Adverse Reaction (Verified 04/09/19 21:55) Height: 1.57 m Weight: 59.676 kg Patient Problems: Current Active Problems Hyperemesis gravidarum (Acute) (Acute) - VTE Risk Labs: VTE Related Lab Results Hgb 12.9 g/dL (12.2-16.2) 04/10/19 05:50 Hct 38.7 % (37.0-47.0) 04/10/19 05:50 Plt Count 373 K/mm3 (142-424) 04/10/19 05:50 BUN 5 mg/dL (7-18) L 04/10/19 05:50 Creatinine 0.55 mg/dL (0.55-1.02) 04/10/19 05:50 Estimated Creat Clear 150 mL/min (50-200) 04/10/19 05:50 Was VTE Risk Assessment Performed: No VTE Score: 3 VTE Risk Level: Low Risk Clinical Trial Participant: Yes - Prophylaxis VTE Prophylaxis Ordered?: Yes Types of VTE Prophylaxis: TEDS Knee High Location of Applied Device: Refused
--- NOTE | 2019-04-10 08:58 | History & Physical Report ---
*Admission Date: 04/09/19 *Chief complaint: Hyperemesis gravidarum *History of present illness: She is a 23-year-old 1 para 0 at 9 weeks gestational age. She came into the ER with severe nausea and vomiting. She was unable to keep anything down. As result of that we have elected to admit her for rehydration and control of her nausea vomiting. She has had an early ultrasound to confirm her dates. [facility] History I have reviewed the patient's past medical history: Yes Medical History: Reports:: MRSA Denies:: Cancer, Diabetes Mellitus Type 1, Diabetes Mellitus Type 2, Hypertension *Have you ever received a pneumonia vaccine?: No *Have you received a flu vaccine this season?: No Laterality Cases: Bilateral: Tonsillectomy Other Surgeries: Yes: Colonoscopy, EGD Amputation: No Fractures: No - *Social History Educational Level: Completed High School Smoking Status: Never smoker Alcohol Intake: never Substance Use Type: denies use *Occupational Status:: employed Housing: house Household Members: significant other *Travel in the last 8 weeks: None Family Hx:: Diabetes Review of Systems - Review of Systems Review of systems:: pertinent systems reviewed and negative unless documented below - *Neurologic Denies seizure-like activity Meds Home Medications Medication Instructions Recorded Confirmed Type Albuterol Sulfate [Albuterol HFA 1 - 2 puffs IH Q4-6H PRN #1 inh 12/21/17 04/09/19 Rx Inhaler] cholecalciferol (vitamin D3) 50,000 unit PO QWEEK 03/26/19 04/09/19 History 50,000 unit capsule Pnv No.122/Iron/Folic Acid 1 each PO DAILY 04/09/19 04/09/19 History [ Multi Tablet] Allergies Allergy/AdvReac Type Severity Reaction Status Date / Time gluten AdvReac Verified 04/09/19 21:55 Exam Vital signs and Labs for Last 24 Hours: Temp Pulse Resp BP Pulse Ox 98.2 F 100 H 16 114/65 100 04/10/19 08:00 04/10/19 08:00 04/10/19 08:00 04/10/19 08:00 04/10/19 08:00 Laboratory Results - last 24 hr 04/09/19 20:00: Urine Color Yellow, Urine Appearance Clear, Urine pH 6.0, Ur Specific [place] 1.010, Urine Protein Negative, Urine Glucose (UA) Negative, Urine Ketones 2+, Urine Blood Negative, Urine Nitrate Negative, Urine Bilirubin Negative, Urine Urobilinogen 0.2, Ur Leukocyte Esterase 1+ A, Urine WBC 3-5, Ur Squamous Epith Cells 10-20, Urine Bacteria Trace 04/09/19 20:00: Urine HCG, Qual Positive 04/09/19 20:25: WBC 11.7 H, RBC 4.54, Hgb 13.6, Hct 40.2, MCV 88.5, MCH 30.0, MCHC 33.9, RDW 13.0, Plt Count 401, MPV 6.4 L, Neut % (Auto) 73.9, Lymph % (Auto) 21.5, Sac % (Auto) 4.3, Eos % (Auto) 0.2, Baso % (Auto) 0.2, Neut # (Auto) 8.6 H, Lymph # (Auto) 2.5, Sac # (Auto) 0.5, Eos # (Auto) 0.0, Baso # (Auto) 0.0 04/09/19 20:25: Sodium 139, Potassium 3.3 L, Chloride 101, Carbon Dioxide 26, Anion Gap 15.3 H, BUN 5 L, Creatinine 0.54 L, Estimated Creat Clear 153, Estimated GFR 140, Est GFR ( Amer) 169, Glucose 73 L, Calcium 9.2, Total Bilirubin 0.4, AST 12 L, ALT 16, Alkaline Phosphatase 46, Total Protein 7.8, Albumin 4.1, Globulin 3.7 H, Albumin/Globulin Ratio 1.1 04/10/19 05:50: WBC 11.3 H, RBC 4.37, Hgb 12.9, Hct 38.7, MCV 88.6, MCH 29.5, MCHC 33.3, RDW 13.1, Plt Count 373, MPV 6.2 L, Neut % (Auto) 65.9, Lymph % (Auto) 28.8, Sac % (Auto) 4.6, Eos % (Auto) 0.3, Baso % (Auto) 0.3, Neut # (Auto) 7.4, Lymph # (Auto) 3.3, Sac # (Auto) 0.5, Eos # (Auto) 0.0, Baso # (Auto) 0.0 04/10/19 05:50: Sodium 141, Potassium 3.6, Chloride 106, Carbon Dioxide 25, Anion Gap 13.6, BUN 5 L, Creatinine 0.55, Estimated Creat Clear 150, Estimated GFR 137, Est GFR ( Amer) 166, Glucose 68 L, Calcium 8.6 I & O for Last 24 hours: Intake & Output 04/07/19 04/08/19 04/09/19 04/10/19 11:59 11:59 11:59 11:59 Intake Total 2941 / 2941 Balance 2941 / 2941 Weight 131 lb 9 oz - Constitutional no acute distress - *Routine HEENT Exam Head: Present: normocephalic Eye: Present: EOMI, PERRL ENT: Present: mucous membranes moist - *Routine Neck Exam Present: supple, full ROM - *Routine Respiratory Exam Absent: accessory muscle use (good air entry bilaterally), wheezes, crackles - *Routine Cardiovascular Exam Present: RRR. Absent: murmur - *Routine Abdominal Exam Present: soft, normoactive bowel sounds. Absent: tenderness, rebound, guarding, mass - *Routine Rectal Exam Patient deferred: visual exam, digital exam - *Routine Exam Patient deferred: external exam, groin exam, perineal exam - *Routine Extremities Exam Present: full ROM. Absent: cyanosis, edema, calf tenderness - *Routine Skin Exam Present: intact (good color) - *Routine Neurological Exam Present: alert, oriented X3 - Routine Psychiatric Exam Present: normal affect Assessment and Plan (1) Hyperemesis gravidarum Current visit: Yes Status: Acute Category: Medical Code(s): O21.0 - Mild hyperemesis gravidarum (2) Dehydration Current visit: No Status: Acute Category: Medical Code(s): E86.0 - Deh ydration - Assessment and plan all Dx Assessment and Plan for all problems:: She has nausea vomiting and dehydration. We will plan to admit her for hyperem esis. She will receive IV fluids as well as Phenergan. We will see how she does over the next 24 hours.
--- NOTE | 2019-04-11 08:17 | Discharge Summary ---
General - General Admission date:: 04/09/19 Discharge date: 04/11/19 HPI HPI: She is a 23-year-old 1 para 0 at 9 weeks gestational age. She came into the ER with severe nausea and vomiting. She was unable to keep anything down. As result of that we have elected to admit her for rehydration and control of her nausea vomiting. She has had an early ultrasound to confirm her dates. Hospital Course Hospital Course: We had started her on IV fluids as well as IV Phenergan. She has done well over the last 24 hours. She is eating and drinking and ambulating. She has had no further episodes of emesis. She still is feeling nauseous at times. We will plan to send her home with oral as well as rectal suppositories of Phenergan. We will see her back in the office in a couple of weeks. I told her to call me back if she is having any further episodes of hyperemesis. Objective Vital signs: Temp Pulse Resp BP Pulse Ox 98.8 F 79 18 130/75 100 04/11/19 07:26 04/11/19 07:26 04/11/19 07:26 04/11/19 07:26 04/11/19 07:26 no acute distress Results Labs on day of discharge: Preliminary micro results at discharge 04/09/19 20:00 Urine Culture - Preliminary Urine,Clean Catch NO GROWTH AFTER 24 HOURS DS: Diagnosis - Discharge Diagnosis (1) Hyperemesis gravidarum Status: Acute (2) Dehydration Status: Acute Discharge Plan - Patient Discharge Instructions ACTIVITY: Continue current activity DIET: continue same diet Patient Instructions: Hyperemesis Gravidarum, DI for Hyperemesis Gravidarum - Follow up Plan Disposition: Home, Self-Custodial Medications: Home Medications Medication Instructions Recorded Confirmed Type Albuterol Sulfate [Albuterol HFA 1 - 2 puffs IH Q4-6H PRN #1 inh 12/21/17 04/09/19 Rx Inhaler] cholecalciferol (vitamin D3) 50,000 unit PO QWEEK 03/26/19 04/09/19 History 50,000 unit capsule Pnv No.122/Iron/Folic Acid 1 each PO DAILY 04/09/19 04/09/19 History [ Multi Tablet] Promethazine HCl [Phenergan 12.5mg 12.5 mg .ROUTE Q4HP PRN #12 04/11/19 Rx Suppository] supp.rect Promethazine HCl [Phenergan 12.5mg 12.5 mg PO Q4HP PRN #20 tab 04/11/19 Rx tablet] Prescriptions/Medication Reconciliation: New Promethazine HCl [Phenergan 12.5mg tablet] 12.5 mg PO Q4HP PRN #20 tab PRN Reason: Gi Upset Promethazine HCl [Phenergan 12.5mg Suppository] 12.5 mg .ROUTE Q4HP PRN #12 supp.rect PRN Reason: Gi Upset Continued cholecalciferol (vitamin D3) 50,000 unit capsule 50,000 unit PO QWEEK Albuterol Sulfate [Albuterol HFA Inhaler] 1 - 2 puffs IH Q4-6H PRN #1 inh PRN Reason: Shortness Of Breath Or Wheezing Pnv No.122/Iron/Folic Acid [ Multi Tablet] 1 each PO DAILY - Problem Reconciliation Problems Reviewed?: Yes
== END 2019-04-11 09:25 | disposition home or self-care (01) ==
LOC: ER 18:03 → 2ND 18:03
PROVIDERS: ADMIT Nurse Practitioner Obstetrics & Gynecology; ATTEND Nurse Practitioner Obstetrics & Gynecology
CPT/HCPCS: 36415; 80048; 80053; 81001; 81025; 85025; 87086; 96365; 99283; G0378

== ENCOUNTER → 2019-04-30 09:32 | Outpatient (CLI) | payer OTHER, SELFPAY | PROVIDERS: Visit Provider Nurse Practitioner Obstetrics & Gynecology | DX: Z34.90 Encounter for supervision of normal pregnancy, unspecified, unspecified trimester (principal) | CPT/HCPCS: 36415 ==

== ENCOUNTER 2019-07-13 18:21 | Outpatient (CLI) | payer OTHER, SELFPAY ==
[2019-07-13 18:34] VITALS: BMI 24.7
[2019-07-13 18:45] VITALS: BP 136/84; PULSE 88; RESP 20; TEMP 36.8; O2SAT 100; BMI 24.7
[2019-07-13 18:51] LABS: Microscopic, Urine URINE MICROSCOPIC (MICROSCOPIC)
[2019-07-13 18:54] LABS: Appearance,Urine CLOUDY (Clear); Bilirubin,Urine Negative (Negative); Blood, Urine Negative (Negative); Color,Urine YELLOW (Yellow); Glucose,Urine (UA) Negative (Negative); Ketones,Urine Negative (Negative); Leukocyte Esterase,Urine 2+ (Negative); Nitrate,Urine Negative (Negative); Protein,Urine Negative (Negative); Urobilinogen,Urine 0.2 EU/dl (0.2)
[2019-07-13 18:56] LABS: Squamous Epithelial Cell,Urine 50-100 #/hpf (0-5)
[2019-07-13 19:00] LABS: Amphetamine/Metha Screen,Urine Negative ng/mL (<1000); Barbiturates Screen,Urine Negative ng/mL (<200); Benzodiazepines Screen,Urine Negative ng/mL (<200); Cannabinoid Screen,Urine Negative ng/mL (<50); Cocaine Screen,Urine Negative ng/mL (<300); Methadone Screen,Urine Negative ng/mL (<300); Opiate Screen,Urine Negative ng/mL (<300); Phencyclidine Screen,Urine Negative ng/mL (<25)
== END 2019-07-13 21:45 | disposition home or self-care (01) ==
LOC: OBOUT 18:26 → OB 18:29
PROVIDERS: PCP Nurse Practitioner Obstetrics & Gynecology; Visit Provider Obstetrics & Gynecology
DX: O26.892 Other specified pregnancy related conditions, second trimester (principal); Z3A.22 22 weeks gestation of pregnancy; R10.31 Right lower quadrant pain; M25.551 Pain in right hip; M54.5 Low back pain
CPT/HCPCS: 59025; 80305; 81001; 87086; 96360; 96367; J0290

== ENCOUNTER → 2019-08-24 07:29 | Outpatient (CLI) | payer OTHER, SELFPAY ==
[2019-08-24 08:11] LABS: Glucose,Fasting 89 mg/dL (60-105)
[2019-08-24 09:47] LABS: Glucose 1 Hour 117 mg/dL (74-106)
== END ==
PROVIDERS: Visit Provider Nurse Practitioner Obstetrics & Gynecology
DX: Z34.90 Encounter for supervision of normal pregnancy, unspecified, unspecified trimester (principal)
CPT/HCPCS: 36415; 82951

== ENCOUNTER → 2019-09-13 11:35 | Outpatient (CLI) | payer OTHER, SELFPAY ==
[2019-09-13 12:01] LABS: Basophils # 0.1 K/mm3 (0-0.2); Basophils % 0.7 % (0.1-2.0); Eosinophils # 0.1 K/mm3 (0.0-0.4); Eosinophils % 1.1 % (0.1-12.0); Hemoglobin 11.5 g/dL (12.2-16.2); Lymphocytes # 2.9 K/mm3 (0.7-4.5); Lymphocytes % 29.7 % (10-50); Mean Corpuscular Volume 90.5 fl (81-99); Mean Platelet Volume 7.1 fl (7.4-10.4); Monocytes # 0.5 K/mm3 (0.1-1.0); Monocytes % 4.7 % (1.7-9.3); Neutrophils # 6.3 K/mm3 (1.8-7.8); Platelet Count 334 K/mm3 (142-424); Red Blood Count 3.98 M/mm3 (4.20-5.40); Red Cell Distribution Width 14.3 % (11.5-17.5); White Blood Count 9.8 K/mm3 (4.8-10.8)
[2019-09-13 14:59] LABS: Alanine Aminotransferase 22 U/L (12-78); Albumin Level 2.9 gm/dL (3.4-5.0); Albumin/Globulin Ratio 0.9 (1.1-1.8); Alkaline Phosphatase 132 U/L (46-116); Anion Gap 11.7 mEq/L (5-15); Aspartate Amino Transferase 28 U/L (15-37); Bilirubin,Total 0.2 mg/dL (0.2-1.0); Blood Urea Nitrogen 3 mg/dL (7-18); Calcium 8.9 mg/dL (8.5-10.1); Carbon Dioxide 28 mmol/L (21.0-32.0); Chloride 104 mmol/L (98-107); Creatinine,Serum 0.53 mg/dL (0.55-1.02); Estimated Glomerular Filt Rate 143 ml/min (>60); GFR (African American) 173 ML/MIN (>60); Globulin 3.4 gm/dl (1.3-3.2); Glucose 87 mg/dL (74-106); Potassium 3.7 mmoL/L (3.5-5.1); Sodium 140 mmol/L (136-145); Total Protein,Serum 6.3 gm/dL (6.4-8.2)
== END ==
PROVIDERS: Visit Provider Nurse Practitioner Obstetrics & Gynecology
DX: Z34.90 Encounter for supervision of normal pregnancy, unspecified, unspecified trimester (principal); Z3A.31 31 weeks gestation of pregnancy
CPT/HCPCS: 36415; 80053; 85025

== ENCOUNTER → 2019-10-08 09:11 | Outpatient (CLI) | payer OTHER, SELFPAY ==
--- NOTE | 2019-10-08 09:27 | ECG_ITS ---
APPROVED REPORT Exam: Resting ECG HR:89 bpm ECG Measurements Heart Rate 89 AXES AR 108 P -7 QRSd 72 QRS 17 QT 332 T 9 QTc 403 <Conclusion> Sinus rhythm with sinus arrhythmia with short AR Otherwise normal ECG Electronically signed by : Dave Read, 10/11/2019 08:52:35
== END ==
PROVIDERS: PCP Emergency Medicine; Visit Provider Nurse Practitioner Obstetrics & Gynecology
DX: O99.89 Other specified diseases and conditions complicating pregnancy, childbirth and the puerperium (principal); R06.02 Shortness of breath
CPT/HCPCS: 93005

== ENCOUNTER → 2019-10-15 11:01 | Outpatient (CLI) | payer OTHER, SELFPAY ==
[2019-10-15 13:20] LABS: Basophils % 0.4 % (0.1-2.0); Eosinophils # 0.1 K/mm3 (0.0-0.4); Eosinophils % 0.4 % (0.1-12.0); Hematocrit 34.7 % (37.0-47.0); Hemoglobin 11.3 g/dL (12.2-16.2); Lymphocytes # 3.6 K/mm3 (0.7-4.5); Mean Corpuscular HGB Conc 32.5 g/dL (31.8-35.4); Mean Corpuscular Hemoglobin 28.3 pg (27.0-31.2); Mean Corpuscular Volume 87.2 fl (81-99); Mean Platelet Volume 7.8 fl (7.4-10.4); Monocytes # 0.8 K/mm3 (0.1-1.0); Monocytes % 6.7 % (1.7-9.3); Neutrophils # 6.9 K/mm3 (1.8-7.8); Neutrophils % 60.5 % (37.0-80.0); Platelet Count 307 K/mm3 (142-424); Red Blood Count 3.97 M/mm3 (4.20-5.40); Red Cell Distribution Width 14.2 % (11.5-17.5); White Blood Count 11.4 K/mm3 (4.8-10.8)
[2019-10-15 14:24] LABS: Anion Gap 12.3 mEq/L (5-15); Blood Urea Nitrogen 3 mg/dl (7-17); Calcium 9.8 mg/dl (8.4-10.2); Carbon Dioxide 25 mmol/L (22.0-30.0); Chloride 103 mmol/L (98-107); Estimated Glomerular Filt Rate 153 ml/min (>60); GFR (African American) 185 ML/MIN (>60); Glucose 59 mg/dl (74-100); Potassium 4.3 mmoL/L (3.5-5.1); Sodium 136 mmol/L (136-145)
[2019-10-15 14:38] LABS: Free T4 (Free Thyroxine) 0.76 ng/dl (0.78-2.19)
[2019-10-15 14:52] LABS: Thyroid Stimulating Hormone 2.03 uIU/mL (0.465-4.68)
[2019-10-15 15:09] LABS: Troponin I < 0.01 ng/ml (0.00-0.034)
== END ==
PROVIDERS: PCP Emergency Medicine; Visit Provider Urology
DX: R00.0 Tachycardia, unspecified (principal); R06.00 Dyspnea, unspecified; R07.9 Chest pain, unspecified; R94.31 Abnormal electrocardiogram [ECG] [EKG]; Z34.90 Encounter for supervision of normal pregnancy, unspecified, unspecified trimester
CPT/HCPCS: 36415; 80048; 84439; 84443; 84484; 85025; 86403; 93306

== ENCOUNTER 2019-10-28 23:57 | Inpatient (IN) ==
[2019-10-29 00:35] LABS: Microscopic, Urine URINE MICROSCOPIC (MICROSCOPIC)
[2019-10-29 00:46] LABS: Appearance,Urine Slightly Cloudy (Clear); Bilirubin,Urine Negative (Negative); Blood, Urine Negative (Negative); Color,Urine YELLOW (Yellow); Glucose,Urine (UA) Negative (Negative); Ketones,Urine Negative (Negative); Leukocyte Esterase,Urine 1+ (Negative); Protein,Urine Negative (Negative); Specific Gravity, Urine 1.015 (1.005-1.030); Urobilinogen,Urine 0.2 EU/dl (0.2)
[2019-10-29 00:52] LABS: Bacteria,Urine 1+ /lpf; Mucus,Urine 1+ /lpf; Sperm,Urine 1+ /lpf
[2019-10-29 00:59] LABS: Benzodiazepines Screen,Urine Negative ng/ml (<200)
[2019-10-29 01:00] LABS: Amphetamine/Metha Screen,Urine Negative ng/ml (<1000); Barbiturates Screen,Urine Negative ng/ml (<200)
[2019-10-29 01:01] LABS: Methadone Screen,Urine Negative ng/ml (<300)
[2019-10-29 01:02] LABS: Cannabinoid Screen,Urine Negative ng/ml (<50); Cocaine Screen,Urine Negative ng/ml (<300)
[2019-10-29 01:03] LABS: Opiate Screen,Urine Negative ng/ml (<300)
[2019-10-29 01:04] LABS: Phencyclidine Screen,Urine Negative ng/ml (<25)
[2019-10-29 02:38] LABS: Basophils % 0.3 % (0.1-2.0); Eosinophils # 0.1 K/mm3 (0.0-0.4); Eosinophils % 0.4 % (0.1-12.0); Hematocrit 33.9 % (37.0-47.0); Hemoglobin 11.2 g/dL (12.2-16.2); Lymphocytes # 4.1 K/mm3 (0.7-4.5); Lymphocytes % 32.1 % (10-50); Mean Corpuscular HGB Conc 33.2 g/dL (31.8-35.4); Mean Corpuscular Volume 85.1 fl (81-99); Mean Platelet Volume 8.3 fl (7.4-10.4); Monocytes # 0.8 K/mm3 (0.1-1.0); Monocytes % 6.3 % (1.7-9.3); Neutrophils # 7.7 K/mm3 (1.8-7.8); Neutrophils % 60.9 % (37.0-80.0); Platelet Count 312 K/mm3 (142-424); Red Blood Count 3.98 M/mm3 (4.20-5.40); Red Cell Distribution Width 14.5 % (11.5-17.5); White Blood Count 12.6 K/mm3 (4.8-10.8)
[2019-10-29 02:47] LABS: Anion Gap 11.8 mEq/L (5-15); Calcium 9.8 mg/dl (8.4-10.2)
--- NOTE | 2019-10-29 05:35 | Progress Note ---
[facility] Anesthesia Checklist - Patient Identification Patient Identification: Arm Band, Verbal (Name & ) - Structural Data Admitted From: Home Planned Operative Procedure/s: Labor epidural Consent for Planned Operative Procedure(s) Verified: Yes Verified Documents: Surgical Consent, History and Physical - Chart Verification Results Verified: CBC, BMP, UA (Urine tox) - Additional verifications Patient : Yes Anesthesia Reactions: No - Airway Assessment C-Spine Mobility Assessed: Yes TMJ Mobility Assessed: Yes Dentition: Good Dentition - Neurological Assessment Level of Consciousness: Awake, Alert, Appropriate, Follows Commands Hx Seizures: No Numbness or tingling in extremities: No - Anesthesia Plan Anesthesia Risk discussed: Yes Anesthesia Plan: Verified ASA Class: II Anesthesia Type: Epidural [facility] History I have reviewed the patient's past medical history: Yes Medical History: Reports:: Gastroesophageal Reflux Disease(GERD), MRSA, Palpitations Denies:: Cancer, Diabetes Mellitus Type 1, Diabetes Mellitus Type 2, Hypertension *Have you ever received a pneumonia vaccine?: No *Have you received a flu vaccine this season?: Yes Comment:: Celiac disease Anesthesia experience/problems:: none Laterality Cases: Bilateral: Tonsillectomy Other Surgeries: Yes: Colonoscopy, EGD. No: Amputation: No Fractures: No - *Social History Smoking Status: Never smoker Alcohol Intake: never Alcohol Intake Frequency:: other Substance Use Type: denies use *Occupational Status:: unemployed Housing: house Household Members: significant other *Travel in the last 8 weeks: None Family Hx:: Diabetes Para: 0
--- NOTE | 2019-10-29 08:09 | Progress Note ---
Labor Note - Subjective: Date: 10/29/19 Time: 08:09 regular contraction - Objective: Contractions:: every 4-5 minutes Cervical Dilation:: 5-6 Effacement:: 90% Station: -1 Membranes: artificially ruptured - Fetus: Monitoring?: Yes monitoring type:: External - Assessment: Labor progressing?: Yes Cephalopelvic disproportion?: No Patient Problems: All Active Problems and not yet delivered in third trimester (Acute) Tachycardia (Acute) Abnormal ECG (Acute) Dyspnea (Acute) Chest pain (Acute) Lower gastrointestinal hemorrhage (Acute) (Acute) Vitamin D deficiency (Chronic) - Plan: Anesthesia for epidural?: Yes Continue to labor down?: Yes Plan for ?: No Continue to monitor?: Yes Start pushing?: No
--- NOTE | 2019-10-29 08:15 | History & Physical Report ---
OB - H&P: HPI Antepartum - History of Present Illness Chief complaint: She has regular contractions. History of present illness: She is a 23-year-old 1 para 0 at 37 and 3 weeks gestational age. She came in in active labor. She is now 5 to 6 cm dilated. She is nahomy every 3 to 4 minutes. - History of Present Criteria for establishing EDC:: LMP confirmed by 1st trimester US care: good care Ultrasounds: normal 1st trimester US, normal mid trimester US Medical complications: other Narrative: She has celiac disease. [facility] History I have reviewed the patient's past medical history: Yes Medical History: Reports:: Gastroesophageal Reflux Disease(GERD), MRSA, Palpitations Denies:: Cancer, Diabetes Mellitus Type 1, Diabetes Mellitus Type 2, Hypertension, Seizures *Have you ever received a pneumonia vaccine?: No *Have you received a flu vaccine this season?: Yes Anesthesia experience/problems:: none Laterality Cases: Bilateral: Tonsillectomy Other Surgeries: Yes: Colonoscopy, EGD. No: Amputation: No Fractures: No - *Social History Smoking Status: Never smoker Alcohol Intake: never Alcohol Intake Frequency:: other Substance Use Type: denies use *Occupational Status:: unemployed Housing: house Household Members: significant other *Travel in the last 8 weeks: None Family Hx:: Diabetes Para: 0 Review of Systems - Review of Systems Review of systems:: pertinent systems reviewed and negative unless documented below Meds Home Medications Medication Instructions Recorded Confirmed Type cholecalciferol (vitamin D3) 1,250 50,000 unit PO WEEKLY 03/26/19 10/29/19 History mcg (50,000 unit) capsule albuterol sulfate 90 mcg/actuation 2 puff INHALATION Q4-6H PRN #1 inh 08/08/19 10/29/19 Rx aerosol inhaler vitamins-iron fumarate 27 27 mg PO DAILY 08/08/19 10/29/19 History mg iron-folic acid 0.8 mg tablet promethazine 12.5 mg tablet 12.5 mg PO Q4HP PRN #30 tab 08/29/19 10/29/19 Rx Allergies Allergy/AdvReac Type Severity Reaction Status Date / Time gluten AdvReac Verified 10/25/19 10:30 OB - H&P: Exam - Physical Exam Vital signs: Temp Pulse Resp BP Pulse Ox 98.6 F 112 H 12 132/92 H 98 03/24/20 00:18 10/29/19 00:18 10/29/19 00:18 10/29/19 00:18 10/29/19 00:18 - Constitutional no acute distress - Routine HEENT Exam Head: Present: normocephalic Eye: Present: EOMI, PERRL ENT: Present: mucous membranes moist - Routine Neck Exam Present: supple, full ROM - Routine Respiratory Exam Absent: accessory muscle use (good air entry bilaterally), respiratory distress, wheezes, crackles - Routine Cardiovascular Exam Present: RRR. Absent: murmur - Routine Abdominal Exam Present: soft, normoactive bowel sounds. Absent: tenderness, distended, guarding - Routine Rectal Exam Patient deferred: visual exam, digital exam - Routine Exam Patient deferred: external exam, groin exam, perineal exam - Routine Extremities Exam Present: full ROM. Absent: cyanosis, edema - Routine Skin Exam Present: intact. Absent: cyanosis - Routine Neurological Exam Present: alert, oriented X3 - Routine Psychiatric Exam Present: normal affect OB - Results - Labs Labs: Short CBC 10/29/19 Range/Units 02:00 WBC 12.6 H (4.8-10.8) K/mm3 Hgb 11.2 L (12.2-16.2) g/dL Hct 33.9 L (37.0-47.0) % Plt Count 312 (142-424) K/mm3 BMP 10/29/19 02:00 Sodium 133 L Potassium 3.8 Chloride 103 Carbon Dioxide 22 BUN 10 Creatinine 0.50 L Glucose 81 Calcium 9.8 Urine 10/29/19 Range/Units 00:13 Urine Color Yellow (Yellow) Urine Appearance Slightly cloudy (Clear) Urine pH 7.0 (5.0-8.5) Ur Specific [place] 1.015 (1.005-1.030) Urine Protein Negative (Negative) Urine Glucose (UA) Negative (Negative) OB - A/P Antepartum (1) Normal delivery at term Current visit: Yes Status: Acute (2) Meconium in amniotic fluid affecting management of mother Current visit: Yes Status: Acute - Additional Plan Planning to breastfeed?: Yes Plan: expectant management Additional Information:: She came in in active labor and has progressed from 3 cm to 5 cm. I ruptured her membranes and there was thin meconium. We expect a vaginal delivery.
--- NOTE | 2019-10-29 10:12 | Progress Note ---
Labor Note - Subjective: Date: 10/29/19 Time: 10:11 regular contraction - Objective: NST:: Reactive Contractions:: every 2-3 minutes Cervical Dilation:: 8 Effacement:: 100% Station: 0 Membranes: artificially ruptured - Fetus: Monitoring?: Yes monitoring type:: External - Assessment: Labor progressing?: Yes Cephalopelvic disproportion?: No Patient Problems: All Active Problems Normal delivery at term (Acute) Meconium in amniotic fluid affecting management of mother (Acute) and not yet delivered in third trimester (Acute) Tachycardia (Acute) Abnormal ECG (Acute) Dyspnea (Acute) Chest pain (Acute) Lower gastrointestinal hemorrhage (Acute) (Acute) Vitamin D deficiency (Chronic) - Plan: Anesthesia for epidural?: Yes Continue to labor down?: Yes Plan for ?: No Continue to monitor?: Yes Start pushing?: No
--- NOTE | 2019-10-29 11:29 | Progress Note ---
Labor Note - Subjective: Date: 10/29/19 Time: 11:28 regular contraction - Objective: NST:: Reactive Contractions:: every 2-3 minutes Cervical Dilation:: 9-10 Effacement:: 100% Station: +1 Membranes: artificially ruptured - Fetus: Monitoring?: Yes monitoring type:: External - Assessment: Labor progressing?: Yes Cephalopelvic disproportion?: No Patient Problems: All Active Problems Normal delivery at term (Acute) Meconium in amniotic fluid affecting management of mother (Acute) and not yet delivered in third trimester (Acute) Tachycardia (Acute) Abnormal ECG (Acute) Dyspnea (Acute) Chest pain (Acute) Lower gastrointestinal hemorrhage (Acute) (Acute) Vitamin D deficiency (Chronic) - Plan: Anesthesia for epidural?: Yes Continue to labor down?: Yes Plan for ?: No Continue to monitor?: Yes Start pushing?: Yes
--- NOTE | 2019-10-29 12:52 | Procedure Note ---
- Delivery Note Delivery Date:: 10/29/19 Delivery Time:: 12:30 Anesthesia Type: Epidural Was labor medically induced?: No Induction method: none Gestational age (weeks): 37 delivered prior to 39 weeks?: Yes Justification for early elective delivery:: Active Labor Infant Gender: Male at 1 minute: 7 at 5 minutes: 8 LAC or MLE?: LAC Delivery Procedure:: She is a 23-year-old 1 now para 0 at 37 and 3 weeks gestational age. She came in in active labor with regular contractions. She subsequently changed her cervix from 3 to 5 cm. She was started on IV oxytocin and had her membranes ruptured. Under labor epidural she progressed to full dilation. She was pushing for over an hour and really did not push beyond a certain point. As result of that I elected to place a vacuum in the direct OA position at station +4. Using 1 long gentle pull I was able to easily deliver the baby's head over an intact perineum. After delivery of the head the anterior shoulder easily delivered followed by the rest the infant's body atraumatically. The baby was vigorous and although there was thin meconium when I ruptured her membranes there was no discoloration of the mucus in the baby's mouth and no evidence of meconium after delivery. The oropharynx and nasopharynx were bulb suction. The cord was allowed to continue to pulsate for approximately 1 minute. The cord is then doubly clamped and cut and the infant was handed off to the nurses who assigned Apgars of 7 at 1 minute and [address] Mejia arrived just before the 5-minute . The baby just required some blow-by oxygen. She received IV oxytocin and using gentle traction the cord and countertraction the fundus I was able to easily deliver the placenta intact. It had a normal three-vessel cord. She had bilateral labial tears that were repaired with interrupted 3-0 Vicryl Rapide suture. The perineum was intact. She has O+ blood, she is rubella immune and was group B streptococcus negative. She plans to breast-feed. Her defect repairer glassware is Dr. Ireland. Estimated blood loss was approximately 500 cc. Laceration:: vaginal Placental Delivery Description: Spontaneous
[2019-10-30 07:05] LABS: Hemoglobin 9.1 g/dL (12.2-16.2)
--- NOTE | 2019-10-30 11:15 | Progress Note ---
Internal Medicine - PN: Subj *Date: 10/30/19 *Time: 11:15 Interval history: She is doing well this morning. She is eating and drinking and ambulating. She is bottlefeeding. Her lochia is normal. Exam Vital signs and Labs for Last 24 Hours: Temp Pulse Resp BP Pulse Ox 98.6 F 112 H 12 132/92 H 98 10/29/19 00:18 10/29/19 00:18 10/29/19 00:18 10/29/19 00:18 10/29/19 00:18 Laboratory Results - last 24 hr 10/30/19 06:35: Hgb 9.1 L, Hct 27.0 L I & O for Last 24 hours: Intake & Output 10/27/19 10/28/19 10/29/19 10/30/19 11:59 11:59 11:59 11:59 Weight 158 lb Microbiology Reports for the Last 24 Hours: Microbiology 10/29/19 00:13 Urine,Clean Catch Urine Culture - Preliminary NO GROWTH AFTER 24 HOURS - *Routine HEENT Exam Head: Present: normocephalic Eye: Present: EOMI, PERRL ENT: Present: mucous membranes moist Assessment and Plan (1) Normal delivery at term Current visit: Yes Status: Acute Category: Medical Code(s): O80 - Encounter for full-term uncomplicated delivery (2) Meconium in amniotic fluid affecting management of mother Current visit: Yes Status: Acute Category: Medical Code(s): O36.8990 - Maternal care for other specified problems, unspecified trimester, not applicable or unspecified - Assessment and plan all Dx Assessment and Plan for all problems:: She is doing well this morning. We will plan to send her home tomorrow.
--- NOTE | 2019-10-31 09:28 | Discharge Summary ---
General - General Admission date:: 10/29/19 Discharge date: 10/31/19 HPI HPI: She is a 23-year-old 1 para 0 at 37 and 3 weeks gestational age. She came in in active labor. Hospital Course Hospital Course: She progressed from 3 to 5 cm and as result of that we elected to deliver her. She had her membranes ruptured and under labor epidural progressed to full dilation. She delivered with the assistance of vacuum a liveborn male child at 12:30 PM in the afternoon of October 29, 2019. The baby weighed 8 pounds 3 ounces and was 19-1/2 inches long. He had Apgars of 7 at 1 minute and 8 at 5 minutes. She has done well and has remained afebrile throughout her hospitalization. She is eating and drinking and ambulating. She was initially breast-feeding but has since started bottlefeeding. She will try breast-feeding again when she gets home. She has O+ blood, she is rubella immune and was group B streptococcus negative. She is discharged home to follow-up with me in approximately 2 weeks time. She will continue with her vitamins and iron. She will take [id number] analgesics for pain. Her condition on discharge is stable and improved. Rhogam Administration: Not Indicated Objective Vital signs: Temp Pulse Resp BP Pulse Ox 97.8 F 105 H 18 123/71 100 10/31/19 07:10 10/31/19 07:10 10/31/19 07:10 10/31/19 07:10 10/31/19 07:10 - *Routine HEENT Exam Head: Present: normocephalic Eye: Present: EOMI, PERRL ENT: Present: mucous membranes moist Results Labs on day of discharge: Labs from last 24 hours 10/29/19 12:45 Cord ABG pH 7.16 L* DS: Diagnosis - Discharge Diagnosis (1) Normal delivery at term Status: Acute (2) Meconium in amniotic fluid affecting management of mother Status: Acute Discharge Plan - Patient Discharge Instructions ACTIVITY: No heavy lifting DIET: continue same diet Patient Instructions: DI for Hemorrhage, DI for Labor and Delivery, Vaginal , DI for Depression - Follow up Plan Disposition: Home, Self-Jail Medications: Home Medications Medication Instructions Recorded Confirmed Type cholecalciferol (vitamin D3) 1,250 50,000 unit PO WEEKLY 03/26/19 10/29/19 History mcg (50,000 unit) capsule albuterol sulfate 90 mcg/actuation 2 puff INHALATION Q4-6H PRN #1 inh 08/08/19 10/29/19 Rx aerosol inhaler vitamins-iron fumarate 27 27 mg PO DAILY 08/08/19 10/29/19 History mg iron-folic acid 0.8 mg tablet promethazine 12.5 mg tablet 12.5 mg PO Q4HP PRN #30 tab 08/29/19 10/29/19 Rx Prescriptions/Medication Reconciliation: Continued vitamins-iron fumarate 27 mg iron-folic acid 0.8 mg tablet 27 mg PO DAILY cholecalciferol (vitamin D3) 1,250 mcg (50,000 unit) capsule 50,000 unit PO WEEKLY albuterol sulfate 90 mcg/actuation aerosol inhaler 2 puff INHALATION Q4-6H PRN #1 inh PRN Reason: Shortness Of Breath Or Wheezing promethazine 12.5 mg tablet 12.5 mg PO Q4HP PRN #30 tab PRN Reason: Gi Upset - Problem Reconciliation Problems Reviewed?: Yes
[2019-10-31 16:58] VITALS: BP 118/89
[2019-10-31 21:13] LABS: Microscopic, Urine URINE MICROSCOPIC (MICROSCOPIC)
[2019-10-31 21:18] LABS: Appearance,Urine CLEAR (Clear); Blood, Urine 3+ (Negative); Color,Urine YELLOW (Yellow); Glucose,Urine (UA) Negative (Negative); Ketones,Urine TRACE (Negative); Leukocyte Esterase,Urine 2+ (Negative); PH,Urine 6.5 (5.0-8.5); Protein,Urine 3+ (Negative); Specific Gravity, Urine 1.025 (1.005-1.030)
[2019-10-31 21:28] LABS: Bilirubin,Urine Negative (Negative)
[2019-10-31 21:29] LABS: Bacteria,Urine Trace /lpf; Squamous Epithelial Cell,Urine Occasional #/hpf (0-5)
--- NOTE | 2019-11-01 09:55 | Discharge Summary ---
General - General Admission date:: 10/29/19 Discharge date: 11/01/19 HPI HPI: She is a 23-year-old 1 para 0 at 37 and 3 weeks gestational age. She came in in active labor. Hospital Course Hospital Course: . She spent an extra day because her baby was admitted. She is discharged home today. Rhogam Administration: Not Indicated Objective Vital signs: Temp Pulse Resp BP Pulse Ox 98.4 F 81 18 118/89 100 10/31/19 16:42 10/31/19 16:42 10/31/19 16:42 10/31/19 16:42 10/31/19 16:42 Results Labs on day of discharge: Labs from last 24 hours 10/31/19 21:05 Urine Color Yellow Urine Appearance Clear Urine pH 6.5 Ur Specific [place] 1.025 Urine Protein 3+ Urine Glucose (UA) Negative Urine Ketones Trace Urine Blood 3+ Urine Nitrate Positive Urine Bilirubin Negative Urine Urobilinogen 1.0 Ur Leukocyte Esterase 2+ A Urine RBC 10-20 Urine WBC 5-10 Ur Squamous Epith Cells Occasional Urine Bacteria Trace DS: Diagnosis - Discharge Diagnosis (1) Normal delivery at term Status: Acute (2) Meconium in amniotic fluid affecting management of mother Status: Acute Discharge Plan - Patient Discharge Instructions ACTIVITY: No heavy lifting DIET: continue same diet Additional Instructions: no heavy lifting, no strenuous activity, nothing in the vagina for 6 weeks. Patient Instructions: Depression, Hemorrhage, DI for Labor and Delivery, Vaginal , DI for Pre-eclampsia, [facility] Post Discharge Instructions, Preventing the Spread of Coronavirus Discharge Instructions - Follow up Plan Follow up with: Parish Stone MD [Staff Physician] - 12/06/19 10:00 am Disposition: Home, Self-Assisted Medications: Home Medications Medication Instructions Recorded Confirmed Type cholecalciferol (vitamin D3) 1,250 50,000 unit PO WEEKLY 03/26/19 10/29/19 History mcg (50,000 unit) capsule albuterol sulfate 90 mcg/actuation 2 puff INHALATION Q4-6H PRN #1 inh 08/08/19 10/29/19 Rx aerosol inhaler vitamins-iron fumarate 27 27 mg PO DAILY 08/08/19 10/29/19 History mg iron-folic acid 0.8 mg tablet promethazine 12.5 mg tablet 12.5 mg PO Q4HP PRN #30 tab 08/29/19 10/29/19 Rx Sulfamethoxazole/Trimethoprim 1 each PO BID #10 tab 11/01/19 Rx [Bactrim DS tablet] Prescriptions/Medication Reconciliation: New Sulfamethoxazole/Trimethoprim [Bactrim DS tablet] 1 each PO BID #10 tab Continued vitamins-iron fumarate 27 mg iron-folic acid 0.8 mg tablet 27 mg PO DAILY cholecalciferol (vitamin D3) 1,250 mcg (50,000 unit) capsule 50,000 unit PO WEEKLY albuterol sulfate 90 mcg/actuation aerosol inhaler 2 puff INHALATION Q4-6H PRN #1 inh PRN Reason: Shortness Of Breath Or Wheezing promethazine 12.5 mg tablet 12.5 mg PO Q4HP PRN #30 tab PRN Reason: Gi Upset - Problem Reconciliation Problems Reviewed?: Yes
== END 2019-11-01 10:45 | disposition home or self-care (01) | DRG 807 ==
LOC: OBOUT 23:57 → OB 10-29 00:03
PROVIDERS: ADMIT Nurse Practitioner Obstetrics & Gynecology; ATTEND Nurse Practitioner Obstetrics & Gynecology
CPT/HCPCS: 36415; 59025; 80048; 80305; 81001; 82800; 85014; 85018; 85025; 86850; 87086; 87088; 87186; 94761; J2405

== ENCOUNTER → 2023-03-21 13:58 | Outpatient (CLI) | payer BC, SELFPAY ==
--- NOTE | 2023-03-21 14:03 | US_ITS ---
PROCEDURE: US TRANSVAGINAL CLINICAL INDICATION: right lower quadrant pain COMPARISON: No exams were available for comparison FINDINGS: Transvaginal sonographic images of the pelvis were obtained. UTERUS: Retroverted and retroflexed measuring 7.1 cm x 4.0 cmx 4.3 cm with a combined endometrial thickness of 3.2mm. LEFT OVARY: 2.7 cmx1.8 cmx1.7cm with a volume of 4.5ml.There are several small peripheral follicles. RIGHT OVARY: 4.3 cmx 3.3 cmx3.0 cm with a volume of 22.4ml. There is a dominant follicle measuring 3.2 cm x 2.1 cm x 2.4 cm. Both ovaries are seen and appear normal. Doppler flow to both ovaries are seen. There is no fluid in the cul-de-sac. IMPRESSION: 1. Retroverted retroflexed uterus normal in shape and size. 2. The endometrium is thin. 3. Both ovaries are seen and appear normal. There is a 3.2 cm follicle on the right ovary. 4. No fluid in the cul-de-sac. Dictated by: Parish Stone MD 03/21/2023 17:11 Parish Stone MD in OV 03/21/2023 17:11
== END ==
PROVIDERS: PCP Emergency Medicine; Visit Provider Nurse Practitioner Obstetrics & Gynecology
DX: R10.31 Right lower quadrant pain (principal)
CPT/HCPCS: 76830

== ENCOUNTER → 2023-05-15 15:06 | Outpatient (CLI) | payer BC, SELFPAY ==
[2023-05-15 16:18] LABS: HCG,Quantitative < 2 mIU/ml (0-5.42)
== END ==
PROVIDERS: PCP Emergency Medicine; Visit Provider Nurse Practitioner Obstetrics & Gynecology
DX: N92.6 Irregular menstruation, unspecified (principal)
CPT/HCPCS: 36415; 84144; 84702

== ENCOUNTER → 2023-05-17 14:38 | Outpatient (CLI) | payer BC, SELFPAY ==
[2023-05-17 18:01] LABS: Basophils % 0.5 % (0.1-2.0); Eosinophils % 0.5 % (0.1-12.0); Hematocrit 44.4 % (37.0-47.0); Hemoglobin 14.9 g/dL (12.2-16.2); Lymphocytes # 2.7 K/mm3 (0.7-4.5); Lymphocytes % 29.7 % (10-50); Mean Corpuscular HGB Conc 33.6 g/dL (31.8-35.4); Mean Corpuscular Hemoglobin 31.8 pg (27.0-31.2); Mean Corpuscular Volume 94.9 fl (81-99); Mean Platelet Volume 7.5 fl (7.4-10.4); Monocytes # 0.5 K/mm3 (0.1-1.0); Neutrophils # 5.9 K/mm3 (1.8-7.8); Neutrophils % 64.3 % (37.0-80.0); Platelet Count 435 K/mm3 (142-424); Red Blood Count 4.68 M/mm3 (4.20-5.40); Red Cell Distribution Width 12.4 % (11.5-17.5); White Blood Count 9.2 K/mm3 (4.8-10.8)
[2023-05-17 18:06] LABS: Alanine Aminotransferase 28 U/L (12-78); Albumin Level 5.1 g/dl (3.5-5.0); Albumin/Globulin Ratio 1.5 (1.1-1.8); Alkaline Phosphatase 65 U/L (38-126); Anion Gap 14.4 mEq/L (5-15); Aspartate Amino Transferase 38 U/L (14-36); Bilirubin,Total 0.4 mg/dl (0.2-1.3); Blood Urea Nitrogen 10 mg/dl (7-17); Calcium 9.8 mg/dl (8.4-10.2); Carbon Dioxide 30 mmol/L (22.0-30.0); Chloride 100 mmol/L (98-107); Chol/HDL Ratio 4.8 (1-3.5); Cholesterol 202 mg/dl (140-200); Estimated Glomerular Filt Rate 100 ml/min (>60); GFR (African American) 121 ML/MIN (>60); Globulin 3.4 g/dL (1.3-3.2); Glucose 94 mg/dl (74-100); HDL Cholesterol 42 mg/dl (40-60); Potassium 4.4 mmoL/L (3.5-5.1); Sodium 140 mmol/L (136-145); Total Protein,Serum 8.5 g/dl (6.3-8.2); Triglycerides 165 mg/dl (30-150); VLDL Cholesterol 33 mg/dL (0-40)
[2023-05-17 18:18] LABS: Direct LDL Cholesterol 119.08 mg/dL (100-129)
[2023-05-17 18:22] LABS: 25-OH Vitamin D, Total 34.3 ng/mL (30-100)
[2023-05-17 18:37] LABS: Thyroid Stimulating Hormone 0.69 uIU/mL (0.465-4.68)
[2023-05-17 18:56] LABS: Vitamin B12 249 pg/mL (239-931)
== END ==
PROVIDERS: PCP Internal Medicine; Visit Provider Internal Medicine
DX: K90.0 Celiac disease (principal); Z68.30 Body mass index [BMI] 30.0-30.9, adult; K86.81 Exocrine pancreatic insufficiency
CPT/HCPCS: 80053; 80061; 82306; 82607; 84443; 85025

== ENCOUNTER → 2023-06-12 07:26 | Outpatient (CLI) | payer BC, SELFPAY ==
[2023-06-12 20:19] LABS: HCG Qualitative, Serum Negative (Negative)
[2023-06-12 20:58] LABS: HCG,Quantitative < 2 mIU/ml (0-5.42)
== END ==
PROVIDERS: PCP Internal Medicine; Visit Provider Internal Medicine
DX: Z32.01 Encounter for pregnancy test, result positive (principal)
CPT/HCPCS: 84702; 84703

== ENCOUNTER → 2023-07-03 16:02 | Outpatient (CLI) | payer BC, SELFPAY ==
[2023-07-03 17:19] LABS: HCG,Quantitative < 2 mIU/ml (0-5.42)
[2023-07-05 12:49] LABS: Progesterone 12.1 ng/mL (.)
== END ==
PROVIDERS: PCP Physician Assistant; Visit Provider Obstetrics & Gynecology
DX: Z32.00 Encounter for pregnancy test, result unknown (principal)
CPT/HCPCS: 84144; 84702

== ENCOUNTER → 2023-07-06 10:31 | Outpatient (CLI) | payer BC, SELFPAY ==
[2023-07-06 12:23] LABS: HCG,Quantitative 15 mIU/ml (0-5.42)
== END ==
PROVIDERS: PCP Physician Assistant; Visit Provider Obstetrics & Gynecology
DX: Z32.01 Encounter for pregnancy test, result positive (principal)
CPT/HCPCS: 36415; 84702

== ENCOUNTER → 2023-07-08 10:17 | Outpatient (CLI) | payer BC, SELFPAY ==
[2023-07-08 11:35] LABS: HCG,Quantitative 44 mIU/ml (0-5.42)
[2023-07-09 14:56] LABS: Progesterone 16.4 ng/mL (.)
== END ==
PROVIDERS: PCP Physician Assistant; Visit Provider Obstetrics & Gynecology
DX: Z32.00 Encounter for pregnancy test, result unknown (principal)
CPT/HCPCS: 36415; 84144; 84702

== ENCOUNTER → 2023-08-02 23:13 | Outpatient (CLI) | payer BC, SELFPAY ==
[2023-08-05 05:05] LABS: Neisseria gonorrhoeae, NAA Negative (Negative)
== END ==
LOC: LAB.DROPOF 23:13
PROVIDERS: PCP Physician Assistant; Visit Provider Obstetrics & Gynecology
DX: Z34.91 Encounter for supervision of normal pregnancy, unspecified, first trimester (principal); Z3A.01 Less than 8 weeks gestation of pregnancy; B95.2 Enterococcus as the cause of diseases classified elsewhere; B95.1 Streptococcus, group B, as the cause of diseases classified elsewhere
CPT/HCPCS: 87086; 87491; 87591

== ENCOUNTER 2023-08-10 09:59 | Outpatient (CLI) | payer BC, SELFPAY ==
[2023-08-10 11:37] LABS: HCG,Quantitative 19908 mIU/ml (0-5.42)
[2023-08-11 08:19] LABS: Progesterone 7.6 ng/mL (.)
== END 2023-08-10 23:59 ==
LOC: LAB 10:00
PROVIDERS: PCP Physician Assistant; Visit Provider Obstetrics & Gynecology
DX: Z32.01 Encounter for pregnancy test, result positive (principal)
CPT/HCPCS: 36415; 84144; 84702

== ENCOUNTER 2023-08-12 10:15 | Outpatient (CLI) | payer BC, SELFPAY ==
[2023-08-12 12:29] LABS: HCG,Quantitative 18921 mIU/ml (0-5.42)
== END 2023-08-12 23:59 ==
LOC: LAB 10:15
PROVIDERS: PCP Physician Assistant; Visit Provider Obstetrics & Gynecology
DX: Z32.01 Encounter for pregnancy test, result positive (principal)
CPT/HCPCS: 36415; 84702

== ENCOUNTER 2023-08-16 13:15 | Outpatient (CLI) | payer BC, SELFPAY ==
--- NOTE | 2023-08-16 13:16 | US_ITS ---
PROCEDURE: US OB <= 14 WEEKS FETUS CLINICAL INDICATION: Check for Viable Fetus/Dates COMPARISON: No exams were available for comparison FINDINGS: Transvaginal sonographic images of the pelvis were obtained. From her last menstrual period she is 9weeks 2days. An intrauterine gestational sac is present with a pole with a crown-rump length of 0.43cm This correlates to a gestational age of 6weeks 3days. heart tones are not seen today. Yolk sac is not seen today and may be collapsed. Above the cervix there is an area that appears to be a small subchorionic hemorrhage. The right ovary is seen and appears normal. There is a small follicle measuring 6 mm. The left ovary is seen and appears normal. There is no fluid in the cul-de-sac. IMPRESSION: 1. A nonviable fetus is seen within the uterine cavity. There is no heart rate activity. 2. The fetus measures 6 weeks 3 days. 3. Both ovaries are seen and appear normal. There appears to be a small corpus luteum on the right ovary. 4. No fluid in the cul-de-sac. 5. Dr. Esteban was notified. Dictated by: Parish Stone MD 08/16/2023 15:34 Parish Stone MD in OV 08/16/2023 15:34
[2023-08-16 16:08] LABS: Basophils # 0.1 K/mm3 (0-0.2); Basophils % 0.6 % (0.1-2.0); Eosinophils # 0.1 K/mm3 (0.0-0.4); Eosinophils % 0.8 % (0.1-12.0); Hematocrit 43.8 % (37.0-47.0); Hemoglobin 14.6 g/dL (12.2-16.2); Lymphocytes # 2.4 K/mm3 (0.7-4.5); Lymphocytes % 19.3 % (10-50); Mean Corpuscular HGB Conc 33.3 g/dL (31.8-35.4); Mean Corpuscular Hemoglobin 30.6 pg (27.0-31.2); Mean Corpuscular Volume 91.7 fl (81-99); Mean Platelet Volume 7.1 fl (7.4-10.4); Monocytes # 0.4 K/mm3 (0.1-1.0); Monocytes % 3.5 % (1.7-9.3); Neutrophils # 9.5 K/mm3 (1.8-7.8); Neutrophils % 75.8 % (37.0-80.0); Platelet Count 485 K/mm3 (142-424); Red Blood Count 4.78 M/mm3 (4.20-5.40); Red Cell Distribution Width 12.4 % (11.5-17.5); White Blood Count 12.6 K/mm3 (4.8-10.8)
[2023-08-16 17:29] LABS: HCG,Quantitative 13835 mIU/ml (0-5.42)
== END 2023-08-16 23:59 ==
LOC: RAD 13:16
PROVIDERS: PCP Physician Assistant; Visit Provider Obstetrics & Gynecology
DX: Z34.91 Encounter for supervision of normal pregnancy, unspecified, first trimester (principal); O02.1 Missed abortion
CPT/HCPCS: 36415; 76801; 84702; 85025; 86850

== ENCOUNTER 2023-08-16 15:45 | Outpatient (CLI) | payer BC, SELFPAY | END 2023-08-16 23:59 | LOC: LAB 15:46 | PROVIDERS: PCP Physician Assistant; Visit Provider Obstetrics & Gynecology | DX: Z34.90 Encounter for supervision of normal pregnancy, unspecified, unspecified trimester (principal) ==

== ENCOUNTER 2023-08-17 10:17 | Day surgery (SDC) | payer BC, SELFPAY ==
[2023-08-17] VITALS (10 sets, daily range): BP systolic 100–121; BP diastolic 54–83; PULSE 85–97; RESP 16–18; TEMP 35.6–36.3; O2SAT 92–100; BMI 30.5
[2023-08-17] MEDS: DOXYCYCLINE HYCL 100 MG TABLET 200 MG PO (10:46)
[2023-08-17] MEDS: LACTATED RINGERS 1000ML 1,000 ML 25 ML IV (10:47)
--- NOTE | 2023-08-17 11:04 | EXP.ANES.CKL ---
[facility] Disclaimer: The information contained in this section may have been updated after the patient was seen, as this information can be updated by other users. Medical History Celiac disease Missed Nausea Surgical History History of tonsillectomy and adenoidectomy Family History Other Alcoholism Asthma Diabetes Substance abuse Social History (Updated 08/17/23 @ 10:34 by Jessica Stein) Smoking Status: Never smoker alcohol intake: never substance use type: denies use current occupational status: unemployed Travel in the last 8 weeks: None household members: significant other housing: house current occupational exposures/hazards: No [facility] Anesthesia Checklist Patient Identification Patient Identification: Arm Band and Verbal (Name & ) Structural Data Admitted From: Home Planned Operative Procedure/s: Suction D&C Consent for Planned Operative Procedure(s) Verified: Yes Verified Documents: Surgical Consent and History and Physical NPO Status Verified Time NPO: 23:00 Chart Verification Results Verified: CBC and HCG Additional verifications Patient : Yes (Missed AB - Non-viable fetus w/absent heart tones) Anesthesia Reactions: No Hx Blood Transfusions: No Blood Transfusion Reaction: No Cardiovascular Assessment Heart Sounds: S1 & S2 Pulse Rhythm: Irregular Peripheral Edema: No Airway Assessment Mallampati Score:: Class I C-Spine Mobility Assessed: Yes (FROM) TMJ Mobility Assessed: Yes Dentition: Good Dentition (Nothing loose per pt.) Neurological Assessment Level of Consciousness: Awake, Alert, Appropriate and Follows Commands Hx Seizures: No Numbness or tingling in extremities: No Anesthesia Plan Anesthesia Risk discussed: Yes Anesthesia Plan: Verified ASA Class: II Anesthesia Type: General
--- NOTE | 2023-08-17 12:42 | P.PNANES_ITS ---
[facility] Anesthesia Record Part I Anesthesia Record I Intake, IV Amount: 300 Hydration: Adequate Estimated blood loss (mL): 100 Urine output (mL): 50 Blood Products used (#): none Blood Pressure: 100/54 SaO2: 92 Pulse Rate: 90 Airway Patency: Patent Respiratory Rate: 18 Temperature: 96.0 F Patient is:: Drowsy, Oral/Nasal airway (#9.0 oral airway) and Stable Stable to PACU at:: 12:45
--- NOTE | 2023-08-17 12:48 | P.OP_ITS ---
Date of procedure: 08/17/23 Pre-op Diagnosis:: 1. Missed Post-op Diagnosis:: 1. Missed Procedure performed:: Suction, dilation and curettage Surgeon:: Norma Esteban DO Transportation Department Supervisor(s):: N/a CABLE TOOL DRILLER:: Other (REBECCA Garner) Anesthesia: GETA Estimated blood loss (mL): 50 Clinical Note:: Shital Jones is a 27 yo at 8w2d by sono #1 who presents to [facility] for scheduled procedure. First ultrasound 08/02/23 demonstrated single IUP at 6w1d with normal appearing yolk sac, no cardiac activity visualized. Follow-up ultrasound 08/10/23 demonstrated SIUP at 6w0d, small appearing yolk sac, no cardiac activity. Repeat ultrasound, 08/16/23, at [facility] demonstrated SIUP at 6w1d with no cardiac activity. Beta hcg quant 08/10/22 was 19,908. Repeat beta hcg quant 08/12/23 was 18,921. She denies cramping and bleeding. She wishes to proceed with surgical management with D&C. Operative findings:: 1. On bimanual exam, uterus normal shape, midposition, 8 week size. No adnexal masses palpated Operative note:: Risks, benefits and alternatives were discussed with the patient. Risks include but are not limited to bleeding, infection, uterine perforation and VTE. Patient voiced understanding and agreed to proceed. She was wheeled back to the operating room and placed under general anesthesia without difficulty. She was placed in dorsal lithotomy position and prepped and draped in the normal sterile fashion. Straight catheter was used to drain the bladder. A bimanual exam was performed. A weighted Auvard was placed in the vaginal vault. Single tooth tenaculum was placed on anterior lip of the cervix. Uterus sounded to 11. Sequential Joby dilators were used to dilate the cervical os. An 7 mm curved chilean suction curettage was advanced into the uterine cavity without difficulty and was used to suction contents of the uterus. Following removal of the products of conception, a medium sized sharp curette was advanced into the uterine cavity and was used to scrape the uterine aviles until a gritty texture was noted. At this time, the suction curette was advanced one more time to suction any remaining products of conception and blood. Instruments were removed from the vagina. Small amount of oozing at tenaculum site. Silver nitrate stick x 1 was applied with hemostasis noted. Patient was awaken from anesthesia without difficulty. Products of conception will be sent to pathology. She was transported to recovery room in stable condition. Patient will be discharged home when awake and ambulating. She received Doxycycline 200 mg PO x 1 dose preoperatively. She was given instructions to follow-up in the office in 2 weeks. Condition: stable Disposition: same day Specimens:: 1. Products of conception Complications:: None
--- NOTE | 2023-08-17 13:58 | SUR.PHASEII ---
CLINIC PHARM AT BEDSIDE TO DELIVER MEDS TO BEDS
--- NOTE | 2023-08-19 11:46 | P.PNANES_ITS ---
[facility] Anesthesia Record Part II Anesthesia Record Part II Discharge Time: 13:10 Destination: Surgical Day Care (OP Surgery) PACU nurse assessment reviewed?: Yes Patient Condition:: Good Anesthesia Complications:: None Swallowing reflex intact?: Yes Airway Patency: Patent Cyanosis?: No Blood Pressure: 100/54 SaO2: 98 Respiratory Rate: 17 Pulse Rate: 90 Temperature: 97.1 F Mental Status: Alert & Oriented Pain level:: 0 Nausea and/or vomitting:: None Intake, IV Amount: 0 Hydration: Adequate
[2023-08-19 11:47] VITALS: BP 100/54; PULSE 90; RESP 17; TEMP 36.2; O2SAT 98
== END 2023-08-17 13:58 | disposition home or self-care (01) ==
PROVIDERS: PCP Physician Assistant; Visit Provider Obstetrics & Gynecology
PROC: (CPT 59820; principal; 2023-08-17 12:00)
DX: O02.1 Missed abortion (principal)
CPT/HCPCS: 59820; 86850; J2405

== ENCOUNTER 2023-08-26 17:19 | Emergency (ER) | payer BC, SELFPAY ==
[2023-08-26 17:30] VITALS: BP 121/86; PULSE 121; RESP 18; TEMP 38.1; O2SAT 99; BMI 29.4
--- NOTE | 2023-08-26 17:38 | ED_ITS ---
Discharge Plan Disposition Patient Disposition: Home, Self-Care Condition: Good Prescriptions Prescriptions: New methylprednisolone [Medrol (Nik)] 4 mg tablets,dose pack See Rx Instructions .Route .COMPLEX 6 Days Qty: 21 0RF Rx Instructions: taper pack; cefdinir 300 mg capsule 300 mg PO BID Qty: 20 0RF Referrals Follow up/Referrals: Jada Anderson PA [Primary Care Provider] - See instructions Activity Restrictions/Add. Instructions Additional Instructions/Restrictions: *Monitor Temp, Over the counter Motrin or Tylenol as directed/as needed Tylenol every 4 hours and Motrin every 6 hours (as long as your family doctor has told you that you can take it) for fever or pain. and straight to ER if unable to l ower temp less than 101.0 after medication given *Warm salt water gargles may help to soothe the throat *Throat Lozenges? *Warm fluids like tea with honey may help to soothe the throat? *Sleep elevated *Humidifier/Vaporizer Your throat swab was sent for culture. Those results are typically sent to your primary care. Be sure to follow up in 2-3 days with your family doctor/primary care physician if no improvement so they can review those result and treat if necessary. If you don?t have a primary care doctor, I recommend you get one but in the mean time, you will have to return to a walk in clinic Follow up IMMEDIATELY for new or worsening symptoms or no Noticeable improvement over the next 48-72 hours. 911 for difficulty breathing or swallowing Clinical Impressions Clinical Impression: URI (upper respiratory infection) Qualifiers: URI type: unspecified URI Qualified Code(s): J06.9 - Acute upper respiratory infection, unspecified Instructions Patient Instructions: Sore Throat, Cefdinir Discharge ED Provider: Helen Gonzalez [facility] General Stated complaint: sore throat,fever,body aches Mode of Arrival: Ambulatory Source of Information: Patient Limitations: No Limitations Time Seen by Provider: 08/26/23 17:38 Description of Symptoms (Recalled from Triage Doc. by RN): PATIENT C/O SORE THROAT, COUGH, FEVER, CHILLS, BODY ACHES AND HEADACHE X 2 DAYS HEENT Symptoms (Recalled from RN notes): Yes Resp Symptoms (Recalled from RN notes): Yes Skin Symptoms (Recalled from RN notes): No MS Symptoms (Recalled from RN notes): No Functional Status (Recalled from RN notes): WNL History of Present Illness Provider Complaint: Patient states that for the last couple of days she has been having fever, chills, body aches, sore throat and feeling achy all over States that her throat is killing her and hurts really bad when she swallows. States her child has flu and strep right now at home and she has been providing the care so today when she was still not feeling any better she came in Related Data Previous Rx's Medication Instructions Recorded cefdinir 300 mg capsule 300 mg PO BID #20 caps 08/26/23 methylprednisolone 4 mg tablets in See Rx Instructions .Route 08/26/23 a dose pack (Medrol (Nik)) .COMPLEX 6 days #21 tabs Allergies Allergy/AdvReac Type Severity Reaction Status Date / Time gluten AdvReac Verified 08/16/23 14:52 Worker's Comp Is this a Worker's Comp case?: No PFSH [facility] Disclaimer: The information contained in this section may have been updated after the patient was seen, as this information can be updated by other users. Medical History (Updated 08/26/23 @ 17:54 by Helen Gonzalez APRN) Celiac disease Missed Nausea Surgical History History of tonsillectomy and adenoidectomy Family History Other Alcoholism Asthma Diabetes Substance abuse Social History (Updated 08/17/23 @ 10:34 by Jessica Stein) Smoking Status: Never smoker alcohol intake: never substance use type: denies use current occupational status: unemployed Travel in the last 8 weeks: None household members: significant other housing: house current occupational exposures/hazards: No ROS Obtained: Yes All systems reviewed & no additional complaints except as documented and Yes Systems reviewed as appropriate & no additional complaints except as documented Constitutional Constitutional: Reports system reviewed and no additional complaints, except as documented, Reports as per HPI, Reports body ache, Reports chills, Reports fever(s) and Reports headache(s) ENT Ears, Nose, Mouth, and Throat: Reports system reviewed and no additional complaints, except as documented, Reports as per HPI, Reports headache(s) and Reports sore throat Cardiovascular Cardiovascular: Reports system reviewed and no additional complaints, except as documented and Reports as per HPI Respiratory Respiratory: Reports system reviewed and no additional complaints, except as documented, Reports as per HPI and Reports cough Gastrointestinal Gastrointestingal: Reports system reviewed and no additional complaints, except as documented and as per HPI Neurologic Neurologic: Reports headache(s) Physical Exam General General appearance: alert and in no apparent distress ENT ENT exam: Present mucous membranes moist Expanded ENT Exam Throat exam: Present other (Pharyngeal erythema noted with PND) Chest Chest inspection: Present normal inspection and symmetric chest wall rise Respiratory Respiratory exam: Present normal lung sounds bilaterally; Absent respiratory distress or wheezes Cardiovascular Cardiovascular exam: Present regular rate, normal rhythm and tachycardia Neurological Exam Neurological exam: Present alert, oriented X3 and normal gait Medical Decision Making Anselmo Inquiry Pt receiving controlled substance: No Anselmo was queried for this patient: No Vital Signs: 08/26/23 17:30 Temperature 100.5 F H Temperature Source Oral Pulse Rate [Left Brachial] 121 H Respiratory Rate 18 Blood Pressure [Left Arm] 121/86 Blood Pressure Mean [Left Arm] 97 Blood Pressure Source [Left Arm] Automatic Cuff Blood Pressure Position [Left Arm] Sitting 02 Sat by Pulse Oximetry 99 Oxygen Delivery Method Room Air Lab Data Lab results reviewed: Yes I reviewed the patient's lab results.
[2023-08-26 17:49] LABS: UTC Strep Screen (Rapid) Negative (Negative)
[2023-08-26 17:50] LABS: UTC Influenza A Antigen Negative (Negative); UTC Influenza B Antigen Negative (Negative)
[2023-08-26 17:55] VITALS: BP 121/86; PULSE 121; RESP 18; TEMP 38.1; O2SAT 99
== END 2023-08-26 17:57 | disposition home or self-care (01) ==
PROVIDERS: Emergency Provider Nurse Practitioner; PCP Physician Assistant
DX: R51.9 Headache, unspecified (principal); R07.0 Pain in throat; R50.9 Fever, unspecified; J06.9 Acute upper respiratory infection, unspecified; M79.18 Myalgia, other site; Z20.818 Contact with and (suspected) exposure to other bacterial communicable diseases; Z20.828 Contact with and (suspected) exposure to other viral communicable diseases
CPT/HCPCS: 87804; 87880; 99204; 99212; G0463

== ENCOUNTER 2023-12-10 13:18 | Emergency (ER) | payer BC, SELFPAY ==
--- NOTE | 2023-12-10 13:25 | XR_ITS ---
PROCEDURE INFORMATION: Exam: XR Left Wrist Exam date and time: 12/10/2023 1:38 PM Age: 28 years old Clinical indication: Injury or trauma; Fall; Swelling (edema); Hand; Left TECHNIQUE: Imaging protocol: Radiologic exam of the left wrist. Views: 3 or more views. COMPARISON: CR Hand L 12/10/2023 1:36 PM FINDINGS: Bones/joints: No acute fracture or dislocation. Soft tissues: Normal. IMPRESSION: No acute fracture or dislocation.
--- NOTE | 2023-12-10 13:25 | XR_ITS ---
PROCEDURE INFORMATION: Exam: XR Left Hand Exam date and time: 12/10/2023 1:36 PM Age: 28 years old Clinical indication: Injury or trauma; Fall; Swelling (edema); Hand; Left TECHNIQUE: Imaging protocol: Radiologic exam of the left hand. Views: 3 or more views. COMPARISON: No relevant prior studies available. FINDINGS: Limitations: Lateral view limited due to overlap of the fingers. Bones/joints: No acute fracture or dislocation. Soft tissues: Normal. IMPRESSION: No acute fracture or dislocation.
[2023-12-10 13:30] VITALS: BP 111/90; PULSE 105; RESP 18; TEMP 36.8; O2SAT 99; BMI 29.2
--- NOTE | 2023-12-10 14:20 | ED_ITS ---
Discharge Plan Disposition Patient Disposition: Home, Self-Care Condition: Good Prescriptions Prescriptions: No Action No Known Home Medications Referrals Follow up/Referrals: Jada Anderson PA [Primary Care Provider] - See instructions Activity Restrictions/Add. Instructions Additional Instructions/Restrictions: rest Ice with cold pack for 20 minutes remove may repeat for comfort every hour splint for support and swelling no less in the shower. Be sure not too tight but not to lose either Ibuprofen every 6 hours as needed for pain or inflammation. If needs something more you can take Tylenol every 4 hours as needed as long as her primary care has told he was okayed for you to take both. If improving any do not need to follow-up you can bring begin exercising 2-3 weeks after injury. Follow-up immediately if new or worsening symptoms or no noticeable improvement over the next 3-5 days. call ortho monday for appointment Clinical Impressions Clinical Impression: Thumb injury Instructions Patient Instructions: DI for Contusion Discharge ED Provider: Maria Fernanda ([facility])Anastasia [facility] General Stated complaint: AO-Pain and swelling in L Thumb Mode of Arrival: Ambulatory Source of Information: Patient Limitations: No Limitations Time Seen by Provider: 12/10/23 14:20 Description of Symptoms (Recalled from Triage Doc. by RN): Pt fell today and hurt left thumb and hand. HEENT Symptoms (Recalled from RN notes): Yes Resp Symptoms (Recalled from RN notes): No Skin Symptoms (Recalled from RN notes): No MS Symptoms (Recalled from RN notes): No Functional Status (Recalled from RN notes): n/a History of Present Illness Provider Complaint: 28 yr old female presents forleft thumb and hand pain. Pt states she fell today and hurt left thumb and hand. Related Data Home Medications Medication Instructions Recorded Confirmed No Known Home Medications 08/31/23 08/31/23 Allergies Allergy/AdvReac Type Severity Reaction Status Date / Time gluten AdvReac Verified 12/10/23 13:40 Worker's Comp Is this a Worker's Comp case?: No [facility] Disclaimer: The information contained in this section may have been updated after the patient was seen, as this information can be updated by other users. Medical History , TRACTOR TECHNICIAN) Missed Nausea Celiac disease Surgical History , TRACTOR TECHNICIAN) History of D&C History of tonsillectomy and adenoidectomy Family History , TRACTOR TECHNICIAN) Substance abuse Diabetes Alcoholism Asthma Social History , TRACTOR TECHNICIAN) Smoking Status: Never smoker alcohol intake: never substance use type: denies use current occupational status: unemployed Travel in the last 8 weeks: None household members: significant other housing: house current occupational exposures/hazards: No ROS Obtained: Yes All systems reviewed & no additional complaints except as documented Constitutional Constitutional: Reports system reviewed and no additional complaints, except as documented Eyes Eyes: Reports system reviewed and no additional complaints, except as documented ENT Ears, Nose, Mouth, and Throat: Reports system reviewed and no additional complaints, except as documented Cardiovascular Cardiovascular: Reports system reviewed and no additional complaints, except as documented Respiratory Respiratory: Reports system reviewed and no additional complaints, except as documented Musculoskeletal Musculoskeletal: Reports system reviewed and no additional complaints, except as documented, Reports as per HPI, Reports joint swelling and Reports limited range of motion Integumentary/Breasts Skin/Breast: Reports system reviewed and no additional complaints, except as documented Neurologic Neurologic: Reports system reviewed and no additional complaints, except as documented Endocrine Endocrine: Reports system reviewed and no additional complaints, except as documented Hematologic/Lymphatic Henatologic/Lymphatic: Reports system reviewed and no additional complaints, except as documented Allergic/Immunologic Allergic/Immunologic: Reports system reviewed and no additional complaints, except as documented Physical Exam General General appearance: alert and in no apparent distress Head Head exam: atraumatic Eye Eye exam: Present normal appearance and PERRL ENT ENT exam: Present normal exam, normal oropharynx, mucous membranes moist and TM's normal bilaterally Respiratory Respiratory exam: Present normal lung sounds bilaterally Cardiovascular Cardiovascular exam: Present regular rate and normal rhythm Expanded Upper Extremity Exam Left: Hand L/R front image: 2 1. other (tender) 2. other (tender- bruise noted) Neurological Exam Neurological exam: Present alert and oriented X3 Skin Skin exam: Present warm and intact Medical Decision Making Medical Records Medical records reviewed: Yes I reviewed the patient's medical records. Anselmo Inquiry Pt receiving controlled substance: No Anselmo was queried for this patient: No Vital Signs: 12/10/23 13:30 Temperature 98.3 F Temperature Source Oral Pulse Rate [Right Radial] 105 H Respiratory Rate 18 Blood Pressure [Right Arm] 111/90 Blood Pressure Mean [Right Arm] 97 Blood Pressure Source [Right Arm] Automatic Cuff Blood Pressure Position [Right Arm] Sitting 02 Sat by Pulse Oximetry 99 Oxygen Delivery Method Room Air Lab Data Lab results reviewed: Yes I reviewed the patient's lab results. Orders (Tests/Meds): ORDERS Category Date Time Status Wrist XR left minimum 3 views [XR wrist LT min 3V] Stat Exams 12/10/23 13:25 Taken XR hand LT min 3V Stat Exams 12/10/23 13:25 Taken
[2023-12-10 15:05] VITALS: BP 111/90; PULSE 105; RESP 18; TEMP 36.8; O2SAT 99
== END 2023-12-10 15:04 | disposition home or self-care (01) ==
PROVIDERS: Emergency Provider Nurse Practitioner Family; PCP Physician Assistant
DX: M79.645 Pain in left finger(s) (principal); M79.642 Pain in left hand; W19.XXXA Unspecified fall, initial encounter
CPT/HCPCS: 73110; 73130; 99212; 99213; G0463

== ENCOUNTER 2024-01-03 13:20 | Emergency (ER) | payer BC, SELFPAY ==
[2024-01-03 14:15] VITALS: BP 147/96; PULSE 100; RESP 18; TEMP 36.9; O2SAT 97; BMI 29.2
--- NOTE | 2024-01-03 14:35 | ED_ITS ---
Discharge Plan Disposition Patient Disposition: Home, Self-Care Condition: Good Prescriptions Prescriptions: New amoxicillin 875 mg tablet 875 mg PO Q12H Qty: 20 0RF fluticasone propionate [Flonase Allergy Relief] 50 mcg/actuation spray,suspension 2 spray intranasal DAILY Qty: 16 0RF Rx Instructions: administer into each nostril ondansetron 4 mg tablet,disintegrating 4 mg PO Q8H PRN (Reason: nausea and vomiting) Qty: 10 0RF Referrals Follow up/Referrals: Jada Anderson PA [Primary Care Provider] - See instructions Activity Restrictions/Add. Instructions Additional Instructions/Restrictions: *Monitor Temp, Over the counter Motrin or Tylenol as directed/as needed Tylenol every 4 hours and Motrin every 6 hours (as long as your family doctor has told you that you can take it) for fever or pain. and straight to ER if unable to lower temp less than 101.0 after medication given *Warm salt water gargles may help to soothe the throat *Throat Lozenges? *Warm fluids like tea with honey may help to soothe the throat? *Sleep elevated *Humidifier/Vaporizer *Flonase 2 sprays in each nostril daily but be aware that it may take 2-3 days before you notice improvement Your throat swab was sent for culture. Those results are typically sent to your primary care. Be sure to follow up in 2-3 days with your family doctor/primary care physician if no improvement so they can review those result and treat if necessary. If you don?t have a primary care doctor, I recommend you get one but in the mean time, you will have to return to a walk in clinic Follow up IMMEDIATELY for new or worsening symptoms or no Noticeable improvement over the next 48-72 hours. 911 for difficulty breathing or swallowing Clinical Impressions Clinical Impression: Otitis media Instructions Patient Instructions: Middle Ear Infection Discharge ED Provider: Helen Gonzalez [facility] General Stated complaint: sore throat, ear pain, nausea Mode of Arrival: Ambulatory Source of Information: Patient Limitations: No Limitations Time Seen by Provider: 01/03/24 14:36 Description of Symptoms (Recalled from Triage Doc. by RN): PATIENT C/O SORE THROAT, COUGH, EAR ACHE, NAUSEA AND VOMITING SINCE MONDAY NIGHT HEENT Symptoms (Recalled from RN notes): Yes Resp Symptoms (Recalled from RN notes): Yes Skin Symptoms (Recalled from RN notes): No MS Symptoms (Recalled from RN notes): No Functional Status (Recalled from RN notes): WNL History of Present Illness Provider Complaint: Patient states that she has been having sore throat, pain in her right ear, feeling achy all over and N/V States today she wasnt feeling any better so she came in to get checked Related Data Previous Rx's Medication Instructions Recorded amoxicillin 875 mg tablet 875 mg PO Q12H #20 tabs 01/03/24 fluticasone propionate 50 2 spray intranasal DAILY #16 grams 01/03/24 mcg/actuation nasal spray,suspension (Flonase Allergy Relief) ondansetron 4 mg disintegrating 4 mg PO Q8H PRN nausea and 01/03/24 tablet vomiting #10 tabs Allergies Allergy/AdvReac Type Severity Reaction Status Date / Time gluten AdvReac Verified 12/19/23 09:13 Worker's Comp Is this a Worker's Comp case?: No [facility] Disclaimer: The information contained in this section may have been updated after the patient was seen, as this information can be updated by other users. Medical History Missed Nausea Celiac disease Surgical History History of D&C History of tonsillectomy and adenoidectomy Family History Other Alcoholism Asthma Diabetes Substance abuse Social History Smoking Status: Never smoker alcohol intake: never substance use type: denies use current occupational status: unemployed Travel in the last 8 weeks: None household members: significant other housing: house current occupational exposures/hazards: No ROS Obtained: Yes All systems reviewed & no additional complaints except as d ocumented and Yes Systems reviewed as appropriate & no additional complaints except as documented Constitutional Constitutional: Reports system reviewed and no additional complaints, except as documented, Reports as per HPI and Reports headache(s) ENT Ears, Nose, Mouth, and Throat: Reports system reviewed and no additional complaints, except as documented, Reports as per HPI, Reports otalgia, Reports headache(s), Reports nasal congestion, Reports sinus pressure and Reports sore throat Cardiovascular Cardiovascular: Reports system reviewed and no additional complaints, except as documented and Reports as per HPI Respiratory Respiratory: Reports system reviewed and no additional complaints, except as documented, Reports as per HPI and Reports cough Gastrointestinal Gastrointestingal: Reports system reviewed and no additional complaints, except as documented, as per HPI, nausea and vomiting Neurologic Neurologic: Reports headache(s) Physical Exam General General appearance: alert and in no apparent distress ENT ENT exam: Present mucous membranes moist Expanded ENT Exam TM/Canal exam: Right TM: erythema and bulging Nose exam: Present sinus tenderness Throat exam: Present other (Pharyngeal erythema noted with PND) Respiratory Respiratory exam: Present normal lung sounds bilaterally; Absent respiratory distress or wheezes Cardiovascular Cardiovascular exam: Present regular rate, normal rhythm and normal heart sounds Neurological Exam Neurological exam: Present alert, oriented X3 and normal gait Medical Decision Making Anselmo Inquiry Pt receiving controlled substance: No Anselmo was queried for this patient: No Vital Signs: 01/03/24 14:15 Temperature 98.5 F Temperature Source Oral Pulse Rate [Left Brachial] 100 H Respiratory Rate 18 Blood Pressure [Left Arm] 147/96 H Blood Pressure Mean [Left Arm] 113 Blood Pressure Source [Left Arm] Automatic Cuff Blood Pressure Position [Left Arm] Sitting 02 Sat by Pulse Oximetry 97 Oxygen Delivery Method Room Air Lab Data Lab results reviewed: Yes I reviewed the patient's lab results.
[2024-01-03 14:38] LABS: UTC Strep Screen (Rapid) Negative (Negative)
[2024-01-03 14:44] VITALS: BP 147/96; PULSE 100; RESP 18; TEMP 36.9; O2SAT 97
== END 2024-01-03 14:48 | disposition home or self-care (01) ==
PROVIDERS: Emergency Provider Nurse Practitioner; PCP Physician Assistant
DX: H66.93 Otitis media, unspecified, bilateral (principal); R07.0 Pain in throat; R11.2 Nausea with vomiting, unspecified
CPT/HCPCS: 87880; 99212; 99214; G0463

== ENCOUNTER 2024-01-24 16:06 | Outpatient (CLI) | payer BC, SELFPAY ==
--- NOTE | 2024-01-24 16:15 | MR_ITS ---
FINAL REPORT CLINICAL HISTORY: left Thumb Sprain. PAIN AT MCP JOINT COMPARISON: None FINDINGS: Multiplanar MR imaging of the left hand was performed without contrast. This examination lacks true coronal and sagittal images through the first MCP joint. The bony structures are intact without evidence of fracture or bone marrow edema. No bony mass is identified. There is soft tissue edema involving the first MCP joint extending slightly into the adjacent soft tissues but without obvious ligamentous injury. The collateral ligaments of the first CMC joint are intact. The flexor and extensor tendons are intact. The musculature is intact. No soft tissue mass or cyst is identified. IMPRESSION: Soft tissue edema at the first MCP joint extending into adjacent soft tissues without obvious ligamentous injury. The collateral ligaments of the first MCP joint are grossly intact, though the study lacks true coronal and sagittal images. Recommend repeat images to acquire true coronal and sagittal images to better assess the collateral ligaments of the MCP joint. Reviewed, Interpreted and Dictated by Asif Veronica MD Transcribed by Bernice Crawford Authenticated and [facility]
== END 2024-01-24 23:59 | disposition home or self-care (01) ==
LOC: RAD 16:07
PROVIDERS: PCP Physician Assistant; Visit Provider Physician Assistant Surgical
DX: M79.645 Pain in left finger(s) (principal); S63.602A Unspecified sprain of left thumb, initial encounter
CPT/HCPCS: 73218

== ENCOUNTER 2024-04-04 10:20 | Outpatient (CLI) | payer BC, SELFPAY | END 2024-04-04 23:59 | disposition home or self-care (01) | LOC: LAB.DROPOF 04-05 10:06 | PROVIDERS: PCP Student in an Organized Health Care Education/Training Program; Visit Provider Student in an Organized Health Care Education/Training Program | DX: J02.9 Acute pharyngitis, unspecified (principal) | CPT/HCPCS: 87070 ==

== ENCOUNTER 2024-04-30 18:15 | Emergency (ER) | payer BC, SELFPAY ==
[2024-04-30 18:47] VITALS: BP 136/84; PULSE 88; RESP 16; TEMP 36.9; O2SAT 99; BMI 27.1
--- NOTE | 2024-04-30 19:16 | EXP.UTC ---
Discharge Plan Disposition Patient Disposition: Home, Self-Care Condition: Good Prescriptions Prescriptions: New guaifenesin [Mucinex] 600 mg tablet extended release 12hr 1,200 mg PO BID PRN (Reason: cough) Qty: 20 0RF No Action Kyleena 17.5 mcg/24 hr (5 yrs) 19.5 mg intrauterine device 1 device intrauterine ONCE Qty: 1 0RF Kyleena 17.5 mcg/24 hr (5 yrs) 19.5 mg intrauterine device 1 device intrauterine ONCE Referrals Follow up/Referrals: Luz Richardson PA [Primary Care Provider] - See instructions Activity Restrictions/Add. Instructions Additional Instructions/Restrictions: *Monitor Temp, Over the counter Motrin or Tylenol as directed/as needed Tylenol every 4 hours and Motrin every 6 hours (as long as your family doctor has told you that you can take it) for fever or pain. and straight to ER if unable to lower temp less than 101.0 after medication given *Warm salt water gargles may help to soothe the throat *Throat Lozenges? *Warm fluids like tea with honey may help to soothe the throat? *Sleep elevated *Humidifier/Vaporizer *Your throat swab was sent for culture. Those results are typically sent to your primary care. Be sure to follow up in 2-3 days with your family doctor/primary care physician if no improvement so they can review those result and treat if necessary. If you don?t have a primary care doctor, I recommend you get one but in the mean time, you will have to return to a walk in clinic Follow up IMMEDIATELY for new or worsening symptoms or no Noticeable improvement over the next 48-72 hours. 911 for difficulty breathing or swallowing You were tested for today for Upper Respiratory Panel with COVID19 your test result should be back in the next 24 hours, you may check for your results on the [facility] Portal Clinical Impressions Clinical Impression: Viral syndrome Stand Alone Forms Stand Alone Forms: Work/School Release Instructions Patient Instructions: Cough, Sore Throat, DI for Viral Syndrome Print Language Print Language: Croatian Discharge ED Provider: Helen Gonzalez [facility] H[place] General Stated complaint: Sore throat,cough,SOA,GORDON,Body aches,runny nose, Mode of Arrival: Ambulatory Source of Information: Patient Limitations: No Limitations Time Seen by Provider: 04/30/24 19:16 Description of Symptoms (Recalled from Triage Doc. by RN): Complaint of cough, SOB, runny nose and body aches. 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 so tonight she came in to get checked Related Data Home Medications ?Medication ?Instructions ?Recorded ?Confirmed levonorgestrel 17.5 mcg/24 hr (up 1 device intrauterine ONCE 04/22/24 04/22/24 to 5 yrs) 19.5mg intrauterine device (Kyleena) Previous Rx's ?Medication ?Instructions ?Recorded guaifenesin 600 mg tablet, 1,200 mg (2 x 600 mg) PO BID PRN 04/30/24 extended release 12 hr (Mucinex) cough #20 tabs Allergies Allergy/AdvReac Type Severity Reaction Status Date / Time gluten AdvReac Verified 04/22/24 14:00 Worker's Comp Is this a Worker's Comp case?: No [facility] Disclaimer: The information contained in this section may have been updated after the patient was seen, as this information can be updated by other users. Medical History (Updated 04/30/24 @ 19:22 by Helen Gonzalez APRN) Dyspareunia Encounter for insertion of Kyleena IUD Missed Nausea Celiac disease Surgical History History of D&C History of tonsillectomy and adenoidectomy Family History Other Alcoholism Asthma Diabetes Substance abuse Social History Smoking Status: Never smoker alcohol intake: never substance use type: denies use current occupational status: unemployed Travel in the last 8 weeks: None household members: significant other housing: house current occupational exposures/hazards: No ROS Obtained: Yes All systems reviewed & no additional complaints except as documented and Yes Systems reviewed as appropriate & no additional complaints except as documented Constitutional Constitutional: Reports system reviewed and no additional complaints, except as documented and Reports as per HPI ENT Ears, Nose, Mouth, and Throat: Reports system reviewed and no additional complaints, except as documented, Reports as per HPI, Reports nasal congestion, Reports nasal discharge and Reports sore throat Cardiovascular Cardiovascular: Reports system reviewed and no additional complaints, except as documented and Reports as per HPI Respiratory Respiratory: Reports system reviewed and no additional complaints, except as documented, Reports as per HPI, Reports shortness of breath (at times with coughing) and Reports cough Gastrointestinal Gastrointestingal: Reports system reviewed and no additional complaints, except as documented and as per HPI Physical Exam General General appearance: alert and in no apparent distress ENT ENT exam: Present mucous membranes moist Expanded ENT Exam Nose exam: Absent sinus tenderness Throat exam: Present other (Mild pharyngeal erythema noted with PND) Respiratory Respiratory exam: Present normal lung sounds bilaterally; Absent respiratory distress or wheezes Cardiovascular Cardiovascular exam: Present regular rate, normal rhythm and normal heart sounds Abdominal Exam Abdominal exam: Present soft and normal bowel sounds; Absent distention or tenderness Neurological Exam Neurological exam: Present alert, oriented X3 and normal gait Medical Decision Making Medical Records Screening: Per USPSTF and CDC recommendations, given the prevalence of disease in our region, it is our hospital?s policy to screen for HIV and viral Hepatitis for all patients aged 18 and over and those with ongoing risk factors. Anselmo Inquiry Pt receiving controlled substance: No Anselmo was queried for this patient: No Vital Signs: 04/30/24 18:47 Temperature 98.5 F Temperature Source Oral Pulse Rate [Radial] 88 Respiratory Rate 16 Blood Pressure [Right Arm] 136/84 Blood Pressure Mean [Right Arm] 101 Blood Pressure Source [Right Arm] Automatic Cuff Blood Pressure Position [Right Arm] Sitting 02 Sat by Pulse Oximetry 99 Oxygen Delivery Method Room Air Lab Data Lab results reviewed: Yes I reviewed the patient's lab results. Orders (Tests/Meds): ORDERS Category Date Time Status Full Resp Panel w/COVID ([facility]) Routine Lab 04/30/24 19:16 Ordered Rapid PCR Covid and Flu A/B Stat Lab 04/30/24 19:10 Received
[2024-04-30 19:19] LABS: Adenovirus,PCR Not Detected (NotDetected); Bordetella Pertussis Not Detected (NotDetected); Chlamydophila Pneumoniae, PCR Not Detected (NotDetected); Coronavirus 229E Not Detected (NotDetected); Coronavirus NL63 Not Detected (NotDetected); Coronavirus OC43 Not Detected (NotDetected); Coronovirus HKU1,PCR Not Detected (NotDetected); Human Metapneumovirus Not Detected (NotDetected); Influenza A, PCR Not Detected (NotDetected); Influenza AH1, 2009 Not Detected (NotDetected); Influenza AH1, PCR Not Detected (NotDetected); Influenza AH3,PCR Not Detected (NotDetected); Influenza B, PCR Not Detected (NotDetected); Mycoplasma Pneumoniae, PCR Not Detected (NotDetected); Parainfluenza 1, PCR Not Detected (NotDetected); Parainfluenza 2, PCR Not Detected (NotDetected); Parainfluenza 3, PCR Not Detected (NotDetected); Parainfluenza 4, PCR Not Detected (NotDetected); Respiratory Syncytial Virus Not Detected (NotDetected); Rhinovirus/Enterovirus Not Detected (NotDetected)
[2024-04-30 19:27] LABS: UTC Strep Screen (Rapid) Negative (Negative)
[2024-04-30 19:33] VITALS: BP 136/84; PULSE 88; RESP 16; TEMP 36.9; O2SAT 99
[2024-05-01 00:50] LABS: Coronavirus 19, PCR Detected (NotDetected)
== END 2024-04-30 19:33 | disposition home or self-care (01) ==
PROVIDERS: Emergency Provider Nurse Practitioner; PCP Student in an Organized Health Care Education/Training Program
DX: U07.1 COVID-19 (principal); R05.9 Cough, unspecified; R07.0 Pain in throat; R06.02 Shortness of breath
CPT/HCPCS: 87265; 87486; 87581; 87632; 87635; 87880; 99212; 99214; G0463

== ENCOUNTER 2024-05-27 11:32 | Emergency (ER) | payer BC, SELFPAY ==
[2024-05-27 12:25] VITALS: BP 120/81; PULSE 102; RESP 19; TEMP 37.1; O2SAT 96; BMI 26.9
--- NOTE | 2024-05-27 12:45 | EXP.UTC ---
Discharge Plan Disposition Patient Disposition: Home, Self-Care Condition: Good Prescriptions Prescriptions: New amoxicillin 875 mg tablet 875 mg PO Q12H Qty: 20 0RF No Action Kyleena 17.5 mcg/24 hr (5 yrs) 19.5 mg intrauterine device 1 device intrauterine ONCE Qty: 1 0RF Referrals Follow up/Referrals: Provider,Referral, [Primary Care Provider] - See instructions Activity Restrictions/Add. Instructions Additional Instructions/Restrictions: *Monitor Temp, Over the counter Motrin or Tylenol as directed/as needed Tylenol every 4 hours and Motrin every 6 hours (as long as your family doctor has told you that you can take it) for fever or pain. and straight to ER if unable to lower temp less than 101.0 after medication given *Warm salt water gargles may help to soothe the throat *Throat Lozenges? *Warm fluids like tea with honey may help to soothe the throat? *Sleep elevated *Humidifier/Vaporizer Your throat swab was sent for culture. Those results are typically sent to your primary care. Be sure to follow up in 2-3 days with your family doctor/primary care physician if no improvement so they can review those result and treat if necessary. If you don?t have a primary care doctor, I recommend you get one but in the mean time, you will have to return to a walk in clinic Follow up IMMEDIATELY for new or worsening symptoms or no Noticeable improvement over the next 48-72 hours. 911 for difficulty breathing or swallowing Clinical Impressions Clinical Impression: Strep throat Stand Alone Forms Stand Alone Forms: Work/School Release Instructions Patient Instructions: DI for Strep Throat, Strep Throat Print Language Print Language: Maori Discharge ED Provider: Helen Gonzalez [facility] General Stated complaint: possible strep cough ear pain body aches Mode of Arrival: Ambulatory Source of Information: Patient Limitations: No Limitations Time Seen by Provider: 05/27/24 12:45 Description of Symptoms (Recalled from Triage Doc. 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 States that she has been having sore throat, pain and pressure in her ears and headache States that her throat feels raw and hurts when she swallows so she came in to get checked Related Data Previous Rx's ?Medication ?Instructions ?Recorded amoxicillin 875 mg tablet 875 mg PO Q12H #20 tabs 05/27/24 Allergies Allergy/AdvReac Type Severity Reaction Status Date / Time gluten AdvReac Verified 04/22/24 14:00 Worker's Comp Is this a Worker's Comp case?: No [facility] Disclaimer: The information contained in this section may have been updated after the patient was seen, as this information can be updated by other users. Medical History (Updated 05/27/24 @ 12:53 by Helne Gonzalez APRN) Dyspareunia Encounter for insertion of Kyleena IUD Missed Nausea Celiac disease Surgical History History of D&C History of tonsillectomy and adenoidectomy Family History Other Alcoholism Asthma Diabetes Substance abuse Social History Smoking Status: Never smoker alcohol intake: never substance use type: denies use current occupational status: unemployed Travel in the last 8 weeks: None household members: significant other housing: house current occupational exposures/hazards: No ROS Obtained: Yes All systems reviewed & no additional complaints except as documented and Yes Systems reviewed as appropriate & no additional complaints except as documented Constitutional Constitutional: Reports system reviewed and no additional complaints, except as documented, Reports as per HPI and Reports headache(s) ENT Ears, Nose, Mouth, and Throat: Reports system reviewed and no additional complaints, except as documented, Reports as per HPI, Reports otalgia, Reports headache(s), Reports nasal congestion, Reports nasal discharge and Reports sore throat Cardiovascular Cardiovascular: Reports system reviewed and no additional complaints, except as documented and Reports as per HPI Respiratory Respiratory: Reports system reviewed and no additional complaints, except as documented and Reports as per HPI Gastrointestinal Gastrointestingal: Reports system reviewed and no additional complaints, except as documented and as per HPI Neurologic Neurologic: Reports headache(s) Physical Exam General General appearance: alert and in no apparent distress ENT ENT exam: Present mucous membranes moist and TM's normal bilaterally Expanded ENT Exam Nose exam: Absent sinus tenderness Throat exam: Present other (Pharyngeal erythema noted ) Respiratory Respiratory exam: Present normal lung sounds bilaterally; Absent respiratory distress or wheezes Cardiovascular Cardiovascular exam: Present regular rate, normal rhythm and normal heart sounds Neurological Exam Neurological exam: Present alert, oriented X3 and normal gait Medical Decision Making Medical Records Screening: Per USPSTF and CDC recommendations, given the prevalence of disease in our region, it is our hospital?s policy to screen for HIV and viral Hepatitis for all patients aged 18 and over and those with ongoing risk factors. Anselmo Inquiry Pt receiving controlled substance: No Anselmo was queried for this patient: No Vital Signs: 05/27/24 12:25 Temperature 98.8 F Temperature Source Oral Pulse Rate [Left Brachial] 102 H Respiratory Rate 19 Blood Pressure [Left Arm] 120/81 Blood Pressure Mean [Left Arm] 94 Blood Pressure Source [Left Arm] Automatic Cuff Blood Pressure Position [Left Arm] Sitting 02 Sat by Pulse Oximetry 96 Oxygen Delivery Method Room Air Lab Data Lab results reviewed: Yes I reviewed the patient's lab results.
[2024-05-27 12:50] VITALS: BP 120/81; PULSE 102; RESP 19; TEMP 37.1; O2SAT 96
[2024-05-27 12:56] LABS: UTC Influenza A Antigen Negative (Negative); UTC Influenza B Antigen Negative (Negative); UTC Strep Screen (Rapid) Positive (Negative)
== END 2024-05-27 12:57 | disposition home or self-care (01) ==
PROVIDERS: Emergency Provider Nurse Practitioner
DX: J02.0 Streptococcal pharyngitis (principal)
CPT/HCPCS: 87804; 87880; 99213; G0381

== ENCOUNTER 2024-08-03 16:45 | Emergency (ER) | payer BC, SELFPAY ==
--- NOTE | 2024-08-03 16:57 | ED_ITS ---
Discharge Plan Disposition Patient Disposition: Home, Self-Care Condition: Good Prescriptions Prescriptions: New azithromycin [Zithromax] 250 mg tablet 250 mg PO UD DOSE PK Qty: 6 0RF Rx Instructions: Take two (2) tablets today, then one (1) tablet days #2 thru #5 methylprednisolone 4 mg Tablets,Dose Pack 4 mg PO DIRECTED 6 Days Qty: 21 0RF Rx Instructions: Take 1 pack as directed for 6 days [id number]-[id number] [Bromfed DM] 2-30-10 mg/5 mL Syrup 5 ml PO Q6H PRN (Reason: Cough) Qty: 240 0RF No Action Kyleena 17.5 mcg/24 hr (5 yrs) 19.5 mg intrauterine device 1 device intrauterine ONCE Qty: 1 0RF Referrals Follow up/Referrals: Jada Anderson PA [Primary Care Provider] - See instructions Activity Restrictions/Add. Instructions Additional Instructions/Restrictions: Drink plenty of fluids. Take tylenol or ibuprofen for pain or fever. Take the medications as directed. Follow up with your regular doctor. GO TO THE ER FOR ANY WORSENING SYMPTOMS Clinical Impressions Clinical Impression: Acute bronchitis Instructions Patient Instructions: DI for Acute Bronchitis Print Language Print Language: Chadian Discharge ED Provider: Raymon Hawthorne [facility] General Stated complaint: cough,headache,whezzy Time Seen by Provider: 08/03/24 16:57 Related Data Previous Rx's ?Medication ?Instructions ?Recorded azithromycin 250 mg tablet 250 mg PO UD DOSE PK #6 tabs 08/03/24 (Zithromax) wzlxvxlkfsyicts-tnrpuolusqguogl-BO 5 ml PO Q6H PRN Cough #240 mL 08/03/24 2 mg-30 mg-10 mg/5 mL oral syrup (Bromfed DM) methylprednisolone 4 mg tablets in 4 mg PO DIRECTED 6 days #21 tabs 08/03/24 a dose pack Allergies Allergy/AdvReac Type Severity Reaction Status Date / Time gluten AdvReac Verified 04/22/24 14:00 [facility] Disclaimer: The information contained in this section may have been updated after the patient was seen, as this information can be updated by other users. Medical History (Updated 08/03/24 @ 18:19 by Raymon Hawthorne APRN) Dyspareunia Encounter for insertion of Kyleena IUD Missed Nausea Celiac disease Surgical History History of D&C History of tonsillectomy and adenoidectomy Family History Other Alcoholism Asthma Diabetes Substance abuse Social History Smoking Status: Never smoker alcohol intake: never substance use type: denies use current occupational status: unemployed Travel in the last 8 weeks: None household members: significant other housing: house current occupational exposures/hazards: No Have you lived/traveled outside [place] in past 30 days?: No Contact w/someone who lives/traveled outside [place] past 30 days?: No Exposure to someone with infectious disease in past 14 days?: No Do you have a fever (greater than 100.4 F or 38 C)?: No Have you tested positive for COVID-19: No Exposed to someone with COVID-19 in past 14 days?: No Do you have a sore throat?: No Do you have a cough?: Yes Do you have any weakness?: No Do you have any diarrhea?: No Are you experiencing any unusual bleeding?: No Do you have any muscle aches/pain?: No Do you have any abdominal pain?: No Are you experiencing loss of taste or smell?: No ROS Obtained: Yes All systems reviewed & no additional complaints except as documented Constitutional Constitutional: Reports poor appetite Eyes Eyes: Reports system reviewed and no additional complaints, except as documented ENT Ears, Nose, Mouth, and Throat: Reports as per HPI Cardiovascular Cardiovascular: Reports system reviewed and no additional complaints, except as documented and Denies chest pain Respiratory Respiratory: Denies shortness of breath, Reports chest congestion, Reports cough, Denies stridor and Denies wheezing Gastrointestinal Gastrointestingal: Reports system reviewed and no additional complaints, except as documented; Denies abdominal pain, diarrhea or vomiting Musculoskeletal Musculoskeletal: Reports system reviewed and no additional complaints, except as documented and Denies arthralgias Integumentary/Breasts Skin/Breast: Reports system reviewed and no additional complaints, except as documented and Denies rash Neurologic Neurologic: Denies paresthesias Allergic/Immunologic Allergic/Immunologic: Denies wheezing Physical Exam General General appearance: alert and in no apparent distress Eye Eye exam: Present normal appearance, PERRL and EOMI ENT ENT exam: Present mucous membranes moist and normal external ear exam Expanded ENT Exam External ear exam: Present normal external inspection TM/Canal exam: Bilateral TM: erythema and bulging Nose exam: Absent sinus tenderness Nasal speculum exam: Bilateral: normal Mouth exam: Present normal external inspection; Absent drooling Teeth exam: Present normal inspection Throat exam: Present tonsillar erythema and tonsillomegaly Neck Neck exam: Present normal inspection, full ROM and trachea midline; Absent tenderness, lymphadenopathy or thyromegaly Chest Chest inspection: Present normal inspection and symmetric chest wall rise; Absent tenderness or rash Respiratory Respiratory exam: Present normal lung sounds bilaterally; Absent respiratory distress, wheezes, stridor or accessory muscle use Cardiovascular Cardiovascular exam: Present regular rate, normal rhythm and normal heart sounds Abdominal Exam Abdominal exam: Present soft; Absent distention, tenderness, guarding, rebound or rigidity Extremities Exam Extremities exam: Present normal inspection, full ROM and normal capillary refill; Absent tenderness or calf tenderness Back Exam Back exam: Present normal inspection and full ROM; Absent tenderness Neurological Exam Neurological exam: Present alert and oriented X3 Psychiatric Psychiatric exam: Present normal affect and normal mood Skin Skin exam: Present warm, dry, intact and normal color Lymphatic Lymphatic Findings: no adenopathy Medical Decision Making Medical Records Medical records reviewed: No I reviewed the patient's medical records. Screening: Per USPSTF and CDC recommendations, given the prevalence of disease in our region, it is our hospital?s policy to screen for HIV and viral Hepatitis for all patients aged 18 and over and those with ongoing risk factors. Anselmo Inquiry Pt receiving controlled substance: No Lab Data Lab results reviewed: Yes I reviewed the patient's lab results.
[2024-08-03 17:05] VITALS: BP 125/85; PULSE 97; RESP 20; TEMP 36.8; O2SAT 99; BMI 27.1
[2024-08-03 18:19] VITALS: BP 125/85; PULSE 97; RESP 20; TEMP 36.8
== END 2024-08-03 18:22 | disposition home or self-care (01) ==
PROVIDERS: Emergency Provider Nurse Practitioner Family; PCP Physician Assistant
DX: J20.9 Acute bronchitis, unspecified (principal)
CPT/HCPCS: 99213; G0381

== ENCOUNTER 2024-10-14 16:13 | Outpatient (CLI) | payer BC, SELFPAY ==
[2024-10-14 18:20] LABS: HIV Combo NEGATIVE (Negative)
[2024-10-14 18:25] LABS: Hepatitis C Ab Qual. W/ RFX NEGATIVE (Negative)
[2024-10-15 09:12] LABS: Hepatitis B Surface Antigen Negative (Negative)
[2024-10-15 23:51] LABS: RPR W/RFX Titers Nonreactive (Nonreactive)
[2024-10-16 15:17] LABS: HSV-1 DNA Negative (Negative); HSV-2 DNA Negative (Negative)
== END 2024-10-14 23:59 | disposition home or self-care (01) ==
LOC: LAB 16:14
PROVIDERS: Visit Provider Obstetrics & Gynecology
DX: Z72.51 High risk heterosexual behavior (principal); Z20.2 Contact with and (suspected) exposure to infections with a predominantly sexual mode of transmission
CPT/HCPCS: 36415; 86592; 86803; 87340; 87389; 87529

== ENCOUNTER 2024-10-17 09:28 | Outpatient (CLI) | payer BC, SELFPAY ==
--- NOTE | 2024-10-17 09:29 | US_ITS ---
PROCEDURE: US TRANSVAGINAL CLINICAL INDICATION: Pelvic Pain COMPARISON: US US TRANSVAGINAL from 03/21/2023 FINDINGS: Transvaginal sonographic images of the pelvis were obtained. UTERUS: 7.9 cm x 5.0cmx 3.3cm anteverted with a combined endometrial thickness of 2.4mm. There is an IUD within the uterine cavity in the correct position. LEFT OVARY: 2.5cmx2.6 cmx3.3cm with a volume of 11.1ml. There are several small peripheral follicles. The largest measures 1 cm. There appears to be an old corpus luteum in the middle of the ovary. RIGHT OVARY: 4.0cmx 2.2cmx2.2cm with a volume of 10.2ml. There are multiple small peripheral follicles giving the ovary a polycystic appearance. The largest follicle measures 1.3 cm. Both ovaries are seen and appear normal. Doppler flow to both ovaries are seen. There is no fluid in the cul-de-sac. IMPRESSION: 1. Anteverted uterus normal in shape and size. The endometrium is thin. There is an IUD within the uterine cavity in the correct position. 2. Right ovary has polycystic appearance with multiple peripheral follicles. The largest follicle measures 1.3 cm. 3. Left ovary has several peripheral follicles but does not appear polycystic. 4. No fluid in the cul-de-sac. Dictated by: Parish Stone MD 10/17/2024 18:52 Parish Stone MD in OV 10/17/2024 18:52
== END 2024-10-17 23:59 | disposition home or self-care (01) ==
LOC: RAD 09:29
PROVIDERS: PCP Obstetrics & Gynecology; Visit Provider Obstetrics & Gynecology
DX: R10.2 Pelvic and perineal pain (principal); Z20.2 Contact with and (suspected) exposure to infections with a predominantly sexual mode of transmission
CPT/HCPCS: 76830